=== PATIENT | male | born 1970 | race Hispanic/Latino ===

== ENCOUNTER 2017-12-02 22:00 | Emergency (ER) | payer SELFPAY ==
[2017-12-02 22:00] VITALS: BMI 26.6
[2017-12-02 22:06] VITALS: BP 112/71; PULSE 82; RESP 16; TEMP 97.7; O2SAT 96
--- NOTE | 2017-12-02 22:23 | ED PDOC ---
HPI: Psych/Substance Abuse Time Seen by Provider: 12/02/17 22:14 Chief Complaint (Nursing): Alcohol Ingestion Chief Complaint (Provider): "body lice" Additional Complaint(s): 47 yo male, well known to ER, brought in by EMS with steady gait for evaluation of ETOH. PT states he is here for body lice. Denies rash. No other complaints. Pt admits to drinking alcohol. Past Medical History Reviewed: Historical Data, Nursing Documentation, Vital Signs Vital Signs: Last Vital Signs Temp 97.7 F 12/02/17 22:02 Pulse 82 12/02/17 22:02 Resp 16 12/02/17 22:02 BP 112/71 12/02/17 22:02 Pulse Ox 96 12/02/17 22:02 - Medical History PMH: Asthma, Bronchitis, COPD, HTN, Pneumonia, Seizures Denies: HIV, Chronic Kidney Disease - Surgical History Surgical History: Hernia Repair (ventral) - Family History Family History: States: Unknown Family Hx - Immunization History Hx Tetanus Toxoid Vaccination: No Hx Influenza Vaccination: No Hx Pneumococcal Vaccination: No - Home Medications Home Medications: Ambulatory Orders Medication Instructions Recorded Albuterol 0.083% [Albuterol 0.083% 2.5 mg INH RQ6 PRN #0 neb 10/08/16 Inhal Ghada (2.5 mg/3 ml) UD] Tiotropium [place] Inhaler 1 inhaler INH DAILY #1 inhaler 10/08/16 [Spiriva Inhalation Handihaler Device] Albuterol HFA [Ventolin HFA 90 2 puff IH Q4 PRN #1 inhaler 02/27/17 mcg/actuation (8 g)] Albuterol HFA [Ventolin HFA 90 1 puff IH BID PRN #1 unit 03/25/17 mcg/actuation (8 g)] Doxycycline Hyclate 100 mg PO BID #14 cap 07/14/17 Doxycycline Monohydrate 100 mg PO BID #14 capsule 07/14/17 Mupirocin 2% Cream [Bactroban 1 applic TOP DAILY #1 tube 07/14/17 Cream] Albuterol HFA [Ventolin HFA 90 2 puff IH Q6 #200 puff 07/25/17 mcg/actuation (8 g)] predniSONE [predniSONE Tab] 20 mg PO BID #8 tab 07/25/17 Fluticasone/Salmeterol 250/50 1 puff IH Q12 #1 inh 08/22/17 [Advair Diskus] predniSONE [predniSONE Tab] 60 mg PO QAM #12 tab 08/22/17 Fluticasone/Salmeterol 100/50 1 puff IH BID #2 dsk 09/03/17 [Advair Diskus 100/50] Albuterol HFA [Ventolin HFA 90 2 puff IH Q6 #200 puff 09/04/17 mcg/actuation (8 g)] Tiotropium [Spiriva] 18 mcg IH DAILY #1 cap 09/04/17 predniSONE [predniSONE Tab] 20 mg PO BID #8 tab 09/04/17 Azithromycin [Zithromax] 250 mg PO DAILY #6 tab 09/05/17 Fluticasone/Salmeterol 250/50 1 puff IH Q12 #28 puff 09/07/17 [Advair Diskus] Albuterol HFA [Ventolin HFA 90 1 - 2 puff IH Q6 PRN #1 inhaler 09/14/17 mcg/actuation (8 g)] predniSONE [predniSONE Tab] 60 mg PO QAM #12 tab 09/14/17 Azithromycin [Zithromax] 250 mg PO DAILY #6 tab 10/05/17 predniSONE [predniSONE Tab] 20 mg PO BID #8 tab 10/05/17 Tiotropium [Spiriva] 18 mcg IH DAILY #1 dev 10/06/17 Budesonide/Formoterol Fumarate 2 puff IH BID #1 aer 10/08/17 [Symbicort] Permethrin 5% [Permethrin] 60 gm TP ONCE PRN #1 tube 10/20/17 - Allergies Allergies/Adverse Reactions: Allergies Allergy/AdvReac Type Severity Reaction Status Date / Time No Known Allergies Allergy Verified 11/21/17 00:12 Review of Systems ROS Statement: Except As Marked, All Systems Reviewed And Found Negative Skin: Positive for: Other Physical Exam - Reviewed Nursing Documentation Reviewed: Yes Vital Signs Reviewed: Yes - Physical Exam Appears: Positive for: Well, Non-toxic, No Acute Distress Head Exam: Positive for: ATRAUMATIC, NORMAL INSPECTION, NORMOCEPHALIC Skin: Positive for: Normal Color, Warm. Negative for: Rash Eye Exam: Positive for: Normal appearance ENT: Positive for: Normal ENT Inspection Neck: Positive for: Normal, Painless ROM Cardiovascular/Chest: Positive for: Regular Rate, Rhythm Respiratory: Positive for: Normal Breath Sounds. Negative for: Accessory Muscle Use, Respiratory Distress Back: Positive for: Normal Inspection Extremity: Positive for: Normal ROM Neurologic/Psych: Positive for: Alert, Oriented - ECG O2 Sat by Pulse Oximetry: 96 Medical Decision Making Medical Decision Making: Pt does not wait in ER for discharge papers. Disposition - Clinical Impression Clinical Impression: Alcohol abuse - Disposition Disposition: Routine/Home Disposition Time: 22:13 Condition: STABLE
== END 2017-12-02 22:25 | disposition home or self-care (01) ==
LOC: H.ER 22:00
DX: F10.10 Alcohol abuse, uncomplicated (principal); I10 Essential (primary) hypertension; J44.9 Chronic obstructive pulmonary disease, unspecified

== ENCOUNTER 2017-12-07 22:58 | Emergency (ER) | payer SELFPAY ==
[2017-12-07 22:58] VITALS: BMI 26.6
[2017-12-07 23:02] VITALS: BP 122/84; PULSE 95; RESP 16; TEMP 98; O2SAT 95
--- NOTE | 2017-12-08 00:12 | ED PDOC ---
HPI: Psych/Substance Abuse Time Seen by Provider: 12/07/17 23:48 Chief Complaint (Nursing): Alcohol Ingestion Chief Complaint (Provider): Alcohol Ingestion History Per: Patient History/Exam Limitations: no limitations Onset/Duration Of Symptoms: Hrs Additional Complaint(s): Patient is a 47 year male who presents via BLS for evaluation of alcohol ingestion. Patient was found sleeping on the street and cannot quantify how many beverages he ingested. Patient is well known to ED for his history of alcoholism. Patient has no physical complaints at this time. PMD: none Past Medical History Reviewed: Historical Data, Nursing Documentation, Vital Signs Vital Signs: Last Vital Signs Temp 98 F 12/07/17 22:59 Pulse 95 H 12/07/17 22:59 Resp 16 12/07/17 22:59 BP 122/84 12/07/17 22:59 Pulse Ox 95 12/07/17 22:59 - Medical History PMH: Asthma, Bronchitis, COPD, HTN, Pneumonia, Seizures Denies: HIV, Chronic Kidney Disease - Surgical History Surgical History: Hernia Repair (ventral) - Family History Family History: States: Unknown Family Hx - Living Arrangements Living Arrangements: Other (homeless) - Social History Current smoker - smoking cessation education provided: Yes (whenever he can find cigarettes) Alcohol: None Drugs: Denies - Immunization History Hx Tetanus Toxoid Vaccination: No Hx Influenza Vaccination: No Hx Pneumococcal Vaccination: No - Home Medications Home Medications: Ambulatory Orders Medication Instructions Recorded Albuterol 0.083% [Albuterol 0.083% 2.5 mg INH RQ6 PRN #0 neb 10/08/16 Inhal Ghada (2.5 mg/3 ml) UD] Tiotropium [place] Inhaler 1 inhaler INH DAILY #1 inhaler 10/08/16 [Spiriva Inhalation Handihaler Device] Albuterol HFA [Ventolin HFA 90 2 puff IH Q4 PRN #1 inhaler 02/27/17 mcg/actuation (8 g)] Albuterol HFA [Ventolin HFA 90 1 puff IH BID PRN #1 unit 03/25/17 mcg/actuation (8 g)] Doxycycline Hyclate 100 mg PO BID #14 cap 07/14/17 Doxycycline Monohydrate 100 mg PO BID #14 capsule 07/14/17 Mupirocin 2% Cream [Bactroban 1 applic TOP DAILY #1 tube 07/14/17 Cream] Albuterol HFA [Ventolin HFA 90 2 puff IH Q6 #200 puff 07/25/17 mcg/actuation (8 g)] predniSONE [predniSONE Tab] 20 mg PO BID #8 tab 07/25/17 Fluticasone/Salmeterol 250/50 1 puff IH Q12 #1 inh 08/22/17 [Advair Diskus] predniSONE [predniSONE Tab] 60 mg PO QAM #12 tab 08/22/17 Fluticasone/Salmeterol 100/50 1 puff IH BID #2 dsk 09/03/17 [Advair Diskus 100/50] Albuterol HFA [Ventolin HFA 90 2 puff IH Q6 #200 puff 09/04/17 mcg/actuation (8 g)] Tiotropium [Spiriva] 18 mcg IH DAILY #1 cap 09/04/17 predniSONE [predniSONE Tab] 20 mg PO BID #8 tab 09/04/17 Azithromycin [Zithromax] 250 mg PO DAILY #6 tab 09/05/17 Fluticasone/Salmeterol 250/50 1 puff IH Q12 #28 puff 09/07/17 [Advair Diskus] Albuterol HFA [Ventolin HFA 90 1 - 2 puff IH Q6 PRN #1 inhaler 09/14/17 mcg/actuation (8 g)] predniSONE [predniSONE Tab] 60 mg PO QAM #12 tab 09/14/17 Azithromycin [Zithromax] 250 mg PO DAILY #6 tab 10/05/17 predniSONE [predniSONE Tab] 20 mg PO BID #8 tab 10/05/17 Tiotropium [Spiriva] 18 mcg IH DAILY #1 dev 10/06/17 Budesonide/Formoterol Fumarate 2 puff IH BID #1 aer 10/08/17 [Symbicort] Permethrin 5% [Permethrin] 60 gm TP ONCE PRN #1 tube 10/20/17 - Allergies Allergies/Adverse Reactions: Allergies Allergy/AdvReac Type Severity Reaction Status Date / Time No Known Allergies Allergy Verified 11/21/17 00:12 Review of Systems ROS Statement: Except As Marked, All Systems Reviewed And Found Negative Constitutional: Negative for: Fever, Weakness Cardiovascular: Negative for: Chest Pain Respiratory: Negative for: Cough, Shortness of Breath Gastrointestinal: Negative for: Nausea, Vomiting, Abdominal Pain, Diarrhea Neurological: Negative for: Headache Physical Exam - Reviewed Nursing Documentation Reviewed: Yes Vital Signs Reviewed: Yes - Physical Exam Appears: Positive for: Well, Non-toxic, No Acute Distress Head Exam: Positive for: ATRAUMATIC, NORMOCEPHALIC Skin: Positive for: Normal Color, Warm, Dry Eye Exam: Positive for: EOMI, PERRL Neck: Positive for: Painless ROM, Supple Cardiovascular/Chest: Positive for: Regular Rate, Rhythm Respiratory: Positive for: Normal Breath Sounds. Negative for: Decreased Breath Sounds, Accessory Muscle Use, Respiratory Distress Gastrointestinal/Abdominal: Positive for: Bowel Sounds (x4), Soft. Negative for : Tenderness, Mass, Distended, Guarding, Rebound Back: Negative for: L CVA Tenderness, R CVA Tenderness, Vertebral Tenderness Extremity: Negative for: Deformity Neurologic/Psych: Positive for: Alert, Oriented (x3), Gait (steady) - ECG O2 Sat by Pulse Oximetry: 95 (RA) Pulse Ox Interpretation: Normal Medical Decision Making Medical Decision Making: Clinical Impression: Alcohol Ingestion Given patient physical and history, patient alert and oriented to person, place , time/date in ED. Walking with a steady gait. Patient requires no further intervention in the ED and is appropriate for discharge. Plan: Discharge Advised to follow up with primary care physician/clinic in 1-2 days without fail. Return to the emergency room at any time for any new or worsening symptoms. Patient states he fully agrees with and understands discharge instructions. States that he agrees with the plan and disposition. Verbalized and repeated discharge instructions and plan. I have given the patient opportunity to ask any additional questions. Patient ambulated from ED with steady gait and no further incident. Disposition - Clinical Impression Clinical Impression: Alcohol abuse, Alcohol dependence, Alcohol ingestion, Alcohol intoxication - Patient ED Disposition Is Patient to be Admitted: No Counseled Patient/Family Regarding: Diagnosis, Need For Followup - Disposition [facility] [place] Disposition: Routine/Home Disposition Time: 00:00 Condition: FAIR Instructions: Alcohol Use - When Is Drinking a Problem?, Alcohol Abuse and Alcoholism (DC), Effects of Alcohol on Your Health Forms: [employer] (Sao Tomean) Print Language: YORUBA - POA Present On Arrival: None
== END 2017-12-08 00:32 | disposition home or self-care (01) ==
LOC: H.ER 22:58
DX: F10.229 Alcohol dependence with intoxication, unspecified (principal); I10 Essential (primary) hypertension; J44.9 Chronic obstructive pulmonary disease, unspecified

== ENCOUNTER 2017-12-08 17:18 | Emergency (ER) | payer OTHER ==
[2017-12-08 17:18] VITALS: BMI 26.6
[2017-12-08 17:25] VITALS: BP 146/99; PULSE 101; RESP 16; TEMP 97.6; O2SAT 99
--- NOTE | 2017-12-08 20:19 | ED PDOC ---
HPI: Psych/Substance Abuse Time Seen by Provider: 12/08/17 17:37 Chief Complaint (Nursing): Alcohol Ingestion Chief Complaint (Provider): Alcohol intoxication History Per: EMS History/Exam Limitations: intoxication Additional Complaint(s): 47yo male, brought to ER by EMS after patient was found publicly intoxicated. Patient admits to drinking alcohol today. He is well known to provider and facility for multiple visits with similar symptoms. He has no medical complaints. Past Medical History Reviewed: Historical Data, Nursing Documentation, Vital Signs Vital Signs: Last Vital Signs Temp 97.6 F 12/08/17 17:24 Pulse 101 H 12/08/17 17:24 Resp 16 12/08/17 17:24 BP 146/99 H 12/08/17 17:24 Pulse Ox 99 12/08/17 17:24 - Medical History PMH: Asthma, Bronchitis, COPD, HTN, Pneumonia, Seizures Denies: HIV, Chronic Kidney Disease - Surgical History Surgical History: Hernia Repair (ventral) - Family History Family History: States: Unknown Family Hx - Immunization History Hx Tetanus Toxoid Vaccination: No Hx Influenza Vaccination: No Hx Pneumococcal Vaccination: No - Home Medications Home Medications: Ambulatory Orders Medication Instructions Recorded Albuterol 0.083% [Albuterol 0.083% 2.5 mg INH RQ6 PRN #0 neb 10/08/16 Inhal Ghada (2.5 mg/3 ml) UD] Tiotropium [place] Inhaler 1 inhaler INH DAILY #1 inhaler 10/08/16 [Spiriva Inhalation Handihaler Device] Albuterol HFA [Ventolin HFA 90 2 puff IH Q4 PRN #1 inhaler 02/27/17 mcg/actuation (8 g)] Albuterol HFA [Ventolin HFA 90 1 puff IH BID PRN #1 unit 03/25/17 mcg/actuation (8 g)] Doxycycline Hyclate 100 mg PO BID #14 cap 07/14/17 Doxycycline Monohydrate 100 mg PO BID #14 capsule 07/14/17 Mupirocin 2% Cream [Bactroban 1 applic TOP DAILY #1 tube 07/14/17 Cream] Albuterol HFA [Ventolin HFA 90 2 puff IH Q6 #200 puff 07/25/17 mcg/actuation (8 g)] predniSONE [predniSONE Tab] 20 mg PO BID #8 tab 07/25/17 Fluticasone/Salmeterol 250/50 1 puff IH Q12 #1 inh 08/22/17 [Advair Diskus] predniSONE [predniSONE Tab] 60 mg PO QAM #12 tab 08/22/17 Fluticasone/Salmeterol 100/50 1 puff IH BID #2 dsk 09/03/17 [Advair Diskus 100/50] Albuterol HFA [Ventolin HFA 90 2 puff IH Q6 #200 puff 09/04/17 mcg/actuation (8 g)] Tiotropium [Spiriva] 18 mcg IH DAILY #1 cap 09/04/17 predniSONE [predniSONE Tab] 20 mg PO BID #8 tab 09/04/17 Azithromycin [Zithromax] 250 mg PO DAILY #6 tab 09/05/17 Fluticasone/Salmeterol 250/50 1 puff IH Q12 #28 puff 09/07/17 [Advair Diskus] Albuterol HFA [Ventolin HFA 90 1 - 2 puff IH Q6 PRN #1 inhaler 09/14/17 mcg/actuation (8 g)] predniSONE [predniSONE Tab] 60 mg PO QAM #12 tab 09/14/17 Azithromycin [Zithromax] 250 mg PO DAILY #6 tab 10/05/17 predniSONE [predniSONE Tab] 20 mg PO BID #8 tab 10/05/17 Tiotropium [Spiriva] 18 mcg IH DAILY #1 dev 10/06/17 Budesonide/Formoterol Fumarate 2 puff IH BID #1 aer 10/08/17 [Symbicort] Permethrin 5% [Permethrin] 60 gm TP ONCE PRN #1 tube 10/20/17 - Allergies Allergies/Adverse Reactions: Allergies Allergy/AdvReac Type Severity Reaction Status Date / Time No Known Allergies Allergy Verified 12/08/17 17:21 Review of Systems ROS Statement: Except As Marked, All Systems Reviewed And Found Negative Constitutional: Negative for: Fever, Chills Psych: Positive for: Other (alcohol intoxication) Physical Exam - Reviewed Nursing Documentation Reviewed: Yes Vital Signs Reviewed: Yes - Physical Exam Comments: GENERAL APPEARANCE: Patient is awake, alert, oriented x 3, in no acute distress. SKIN: Warm, dry; (-) cyanosis. HEAD: (-) scalp swelling, (-) scalp tenderness. EYES: (-) conjunctival pallor, (-) scleral icterus, (-) nystagmus. ENMT: Mucous membranes moist. Airway patent: (-) stridor. NECK: (-) tenderness, (-) stiffness, (-) lymphadenopathy. CHEST AND RESPIRATORY: (-) rales, (-) rhonchi, (-) wheezes; breath sounds equal. ABDOMEN: Soft, (-) distention, (-) tenderness, (-) guarding. NEURO AND PSYCH: Mental status as above. Affect: Normal. Memory: Intact. 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 --On re-evaluation, patient is AAOx3 in no acute distress. Speaking in full sentences, no tremors, ambulating with a steady gait. Patient with no complaints. Patient cleared for discharge. Scribe Attestation: Documented by Park Snow acting as a scribe for Amelia Figueroa PA-C. Provider Attestation: All medical record entries made by the Scribe were at my direction and personally dictated by me. I have reviewed the chart and agree that the record accurately reflects my personal performance of the history, physical exam, medical decision making, and the department course for this patient. I have also personally directed, reviewed, and agree with the discharge instructions and disposition. Disposition - Clinical Impression Clinical Impression: Alcoholism - Patient ED Disposition Is Patient to be Admitted: No Counseled Patient/Family Regarding: Diagnosis, Need For Followup - Disposition Referrals: [facility] [Outside] Disposition: Routine/Home Disposition Time: 23:00 Condition: STABLE Instructions: Alcohol Abuse and Alcoholism (DC) Forms: [employer] (Hebrew) - PA / DRAPERY HANGER / Resident Statement MD/DO has reviewed & agrees with the documentation as recorded.
== END 2017-12-08 23:04 | disposition home or self-care (01) ==
LOC: H.ER 17:18
DX: F10.129 Alcohol abuse with intoxication, unspecified (principal); F10.229 Alcohol dependence with intoxication, unspecified; I10 Essential (primary) hypertension; J44.9 Chronic obstructive pulmonary disease, unspecified

== ENCOUNTER 2017-12-11 00:23 | Emergency (ER) | payer MEDICAID ==
[2017-12-11 00:23] VITALS: BMI 26.6
[2017-12-11 00:32] VITALS: PULSE 80; RESP 18; TEMP 98; O2SAT 95
--- NOTE | 2017-12-11 01:00 | ED PDOC ---
HPI: Psych/Substance Abuse Time Seen by Provider: 12/11/17 00:31 Chief Complaint (Nursing): Alcohol Ingestion Chief Complaint (Provider): Alcohol Ingestion ED Caveat: Intoxicated History Per: Patient, EMS History/Exam Limitations: intoxication Current Symptoms Are (Timing): Still Present Additional Complaint(s): 47 year old male brought in by EMS due to public intoxication. [place] Patient is well known to this provider over multiple ED visits. Offers no complaints at this time. PMD: Provider TBD Past Medical History Reviewed: Historical Data, Nursing Documentation, Vital Signs Vital Signs: Last Vital Signs Temp 98.0 F 12/11/17 00:29 Pulse 80 12/11/17 00:29 Resp 18 12/11/17 00:29 BP 111/72 12/11/17 00:29 Pulse Ox 95 12/11/17 00:29 - Medical History PMH: Asthma, Bronchitis, COPD, HTN, Pneumonia, Seizures Denies: HIV, Chronic Kidney Disease - Surgical History Surgical History: Hernia Repair (ventral) - Family History Family History: States: Unknown Family Hx - Immunization History Hx Tetanus Toxoid Vaccination: No Hx Influenza Vaccination: No Hx Pneumococcal Vaccination: No - Home Medications Home Medications: Ambulatory Orders Medication Instructions Recorded Albuterol 0.083% [Albuterol 0.083% 2.5 mg INH RQ6 PRN #0 neb 10/08/16 Inhal Ghada (2.5 mg/3 ml) UD] Tiotropium [place] Inhaler 1 inhaler INH DAILY #1 inhaler 10/08/16 [Spiriva Inhalation Handihaler Device] Albuterol HFA [Ventolin HFA 90 2 puff IH Q4 PRN #1 inhaler 02/27/17 mcg/actuation (8 g)] Albuterol HFA [Ventolin HFA 90 1 puff IH BID PRN #1 unit 03/25/17 mcg/actuation (8 g)] Doxycycline Hyclate 100 mg PO BID #14 cap 07/14/17 Doxycycline Monohydrate 100 mg PO BID #14 capsule 07/14/17 Mupirocin 2% Cream [Bactroban 1 applic TOP DAILY #1 tube 07/14/17 Cream] Albuterol HFA [Ventolin HFA 90 2 puff IH Q6 #200 puff 10/30/17 mcg/actuation (8 g)] predniSONE [predniSONE Tab] 20 mg PO BID #8 tab 07/25/17 Fluticasone/Salmeterol 250/50 1 puff IH Q12 #1 inh 08/22/17 [Advair Diskus] predniSONE [predniSONE Tab] 60 mg PO QAM #12 tab 08/22/17 Fluticasone/Salmeterol 100/50 1 puff IH BID #2 dsk 09/03/17 [Advair Diskus 100/50] Albuterol HFA [Ventolin HFA 90 2 puff IH Q6 #200 puff 09/04/17 mcg/actuation (8 g)] Tiotropium [Spiriva] 18 mcg IH DAILY #1 cap 09/04/17 predniSONE [predniSONE Tab] 20 mg PO BID #8 tab 09/04/17 Azithromycin [Zithromax] 250 mg PO DAILY #6 tab 09/05/17 Fluticasone/Salmeterol 250/50 1 puff IH Q12 #28 puff 09/07/17 [Advair Diskus] Albuterol HFA [Ventolin HFA 90 1 - 2 puff IH Q6 PRN #1 inhaler 09/14/17 mcg/actuation (8 g)] predniSONE [predniSONE Tab] 60 mg PO QAM #12 tab 09/14/17 Azithromycin [Zithromax] 250 mg PO DAILY #6 tab 10/05/17 predniSONE [predniSONE Tab] 20 mg PO BID #8 tab 10/05/17 Tiotropium [Spiriva] 18 mcg IH DAILY #1 dev 10/06/17 Budesonide/Formoterol Fumarate 2 puff IH BID #1 aer 10/08/17 [Symbicort] Permethrin 5% [Permethrin] 60 gm TP ONCE PRN #1 tube 10/20/17 - Allergies Allergies/Adverse Reactions: Allergies Allergy/AdvReac Type Severity Reaction Status Date / Time No Known Allergies Allergy Verified 12/08/17 17:21 Review of Systems ROS Statement: Except As Marked, All Systems Reviewed And Found Negative Physical Exam - Reviewed Nursing Documentation Reviewed: Yes Vital Signs Reviewed: Yes - ECG O2 Sat by Pulse Oximetry: 95 (RA) Pulse Ox Interpretation: Normal Medical Decision Making Medical Decision Making: Time: 00:39 Initial Impression: 47 y/o old male with alcohol intoxication Initial Plan: --Alcohol serum --Accucheck --Reevaluation Time: 07:00 Patient signed out to Dr. Coreas pending sobriety. Scribe Attestation: Documented by Aiden Pino, acting as a scribe for Tomasz Hill MD. Provider Scribe Attestation: All medical record entries made by the Scribe were at my direction and personally dictated by me. I have reviewed the chart and agree that the record accurately reflects my personal performance of the history, physical exam, medical decision making, and the department course for this patient. I have also personally directed, reviewed, and agree with the discharge instructions and disposition. Disposition - Clinical Impression Clinical Impression: Alcohol abuse with intoxication - Patient ED Disposition Is Patient to be Admitted: Transfer of Care - Disposition Disposition: Transfer of Care Disposition Time: 07:00 Condition: STABLE Instructions: Alcohol Abuse and Alcoholism (DC) Forms: [employer] (Bangladeshi) Patient Signed Over To: Angel Coreas Handoff Comments: pending sobriety
[2017-12-11 06:54] VITALS: BP 103/65
--- NOTE | 2017-12-11 07:27 | ED PDOC ---
- ECG O2 Sat by Pulse Oximetry: 95 (RA) Pulse Ox Interpretation: Normal Medical Decision Making Medical Decision Making: Time: 7:00 Patient endorsed to me by Dr. Tomasz Hill at this time, pending clinical sobriety. 929 Informed by nurse that patient eloped from the ED Scribe Attestation: Documented by Elizabeth Carter, acting as a scribe for Angel Coreas MD Provider Scribe Attestation: All medical record entries made by the Scribe were at my direction and personally dictated by me. I have reviewed the chart and agree that the record accurately reflects my personal performance of the history, physical exam, medical decision making, and the department course for this patient. I have also personally directed, reviewed, and agree with the discharge instructions and disposition. Disposition - Clinical Impression Clinical Impression: Alcohol abuse with intoxication - POA Present On Arrival: None - Disposition Referrals: [facility] [Outside] Disposition: Eloped Disposition Time: 09:30 Condition: STABLE Instructions: Alcohol Abuse and Alcoholism (DC)
== END 2017-12-11 07:25 | disposition left against medical advice (07) ==
LOC: H.ER 00:23
DX: F10.129 Alcohol abuse with intoxication, unspecified (principal); I10 Essential (primary) hypertension; J44.9 Chronic obstructive pulmonary disease, unspecified; Y90.8 Blood alcohol level of 240 mg/100 ml or more

== ENCOUNTER 2017-12-13 22:47 | Emergency (ER) | payer MEDICAID, OTHER ==
[2017-12-13 22:47] VITALS: BMI 26.6
[2017-12-13 22:55] VITALS: BP 118/82; PULSE 85; RESP 16; TEMP 97.2; O2SAT 97
--- NOTE | 2017-12-14 02:00 | ED PDOC ---
HPI: Psych/Substance Abuse Time Seen by Provider: 12/13/17 22:57 Chief Complaint (Nursing): Alcohol Ingestion Chief Complaint (Provider): Alcohol Ingestion ED Caveat: Intoxicated History Per: Patient History/Exam Limitations: intoxication Current Symptoms Are (Timing): Still Present Modifying Factor(s): Alcohol Additional Complaint(s): 47 year old male brought in by EMS presents to ED with complaints of alcohol intoxication and has a past medical history of HTN and COPD. EMS states patient was found publicly intoxicated lying on a street. Patient is not a reliable historian and admits to drinking. PCP: None Past Medical History Reviewed: Historical Data, Nursing Documentation, Vital Signs Vital Signs: Last Vital Signs Temp 97.2 F L 12/13/17 22:48 Pulse 85 12/13/17 22:48 Resp 16 12/13/17 22:48 BP 118/82 12/13/17 22:48 Pulse Ox 97 12/13/17 22:48 - Medical History PMH: Asthma, Bronchitis, COPD, HTN, Pneumonia, Seizures Denies: HIV, Chronic Kidney Disease - Surgical History Surgical History: Hernia Repair (ventral) - Family History Family History: States: Unknown Family Hx - Immunization History Hx Tetanus Toxoid Vaccination: No Hx Influenza Vaccination: No Hx Pneumococcal Vaccination: No - Home Medications Home Medications: Ambulatory Orders Medication Instructions Recorded Albuterol 0.083% [Albuterol 0.083% 2.5 mg INH RQ6 PRN #0 neb 10/08/16 Inhal Ghada (2.5 mg/3 ml) UD] Tiotropium [place] Inhaler 1 inhaler INH DAILY #1 inhaler 10/08/16 [Spiriva Inhalation Handihaler Device] Albuterol HFA [Ventolin HFA 90 2 puff IH Q4 PRN #1 inhaler 02/27/17 mcg/actuation (8 g)] Albuterol HFA [Ventolin HFA 90 1 puff IH BID PRN #1 unit 03/25/17 mcg/actuation (8 g)] Doxycycline Hyclate 100 mg PO BID #14 cap 07/14/17 Doxycycline Monohydrate 100 mg PO BID #14 capsule 07/14/17 Mupirocin 2% Cream [Bactroban 1 applic TOP DAILY #1 tube 07/14/17 Cream] Albuterol HFA [Ventolin HFA 90 2 puff IH Q6 #200 puff 07/25/17 mcg/actuation (8 g)] predniSONE [predniSONE Tab] 20 mg PO BID #8 tab 07/25/17 Fluticasone/Salmeterol 250/50 1 puff IH Q12 #1 inh 08/22/17 [Advair Diskus] predniSONE [predniSONE Tab] 60 mg PO QAM #12 tab 08/22/17 Fluticasone/Salmeterol 100/50 1 puff IH BID #2 dsk 09/03/17 [Advair Diskus 100/50] Albuterol HFA [Ventolin HFA 90 2 puff IH Q6 #200 puff 09/04/17 mcg/actuation (8 g)] Tiotropium [Spiriva] 18 mcg IH DAILY #1 cap 09/04/17 predniSONE [predniSONE Tab] 20 mg PO BID #8 tab 09/04/17 Azithromycin [Zithromax] 250 mg PO DAILY #6 tab 09/05/17 Fluticasone/Salmeterol 250/50 1 puff IH Q12 #28 puff 09/07/17 [Advair Diskus] Albuterol HFA [Ventolin HFA 90 1 - 2 puff IH Q6 PRN #1 inhaler 09/14/17 mcg/actuation (8 g)] predniSONE [predniSONE Tab] 60 mg PO QAM #12 tab 09/14/17 Azithromycin [Zithromax] 250 mg PO DAILY #6 tab 10/05/17 predniSONE [predniSONE Tab] 20 mg PO BID #8 tab 10/05/17 Tiotropium [Spiriva] 18 mcg IH DAILY #1 dev 10/06/17 Budesonide/Formoterol Fumarate 2 puff IH BID #1 aer 10/08/17 [Symbicort] Permethrin 5% [Permethrin] 60 gm TP ONCE PRN #1 tube 10/20/17 - Allergies Allergies/Adverse Reactions: Allergies Allergy/AdvReac Type Severity Reaction Status Date / Time No Known Allergies Allergy Verified 12/08/17 17:21 Review of Systems Review Of Systems: ROS cannot be obtained secondary to pt's inabilty to answer questions. (Due to patient's intoxicated state) Physical Exam - Reviewed Nursing Documentation Reviewed: Yes Vital Signs Reviewed: Yes - Physical Exam Appears: Positive for: Non-toxic, No Acute Distress (alcohol on breath) Skin: Positive for: Normal Color, Warm, Dry Cardiovascular/Chest: Positive for: Regular Rate, Rhythm Respiratory: Negative for: Respiratory Distress Gastrointestinal/Abdominal: Positive for: Soft. Negative for: Tenderness Extremity: Positive for: Normal ROM. Negative for: Deformity Neurologic/Psych: Positive for: Gait (unsteady). Negative for: Alert ( somnolent but arousable), Motor/Sensory Deficits - ECG O2 Sat by Pulse Oximetry: 97 (RA) Pulse Ox Interpretation: Normal Medical Decision Making Medical Decision Makin Initial impression: alcohol intoxication Initial plan: * EtOH serum * Accucheck 0600 Upon re-evaluation patient is awake, alert, and oriented x3. Patient walks with a steady gait and is stable for discharge home. Scribe Attestation: Documented by Shara Collazo acting as a scribe Tomasz Hill MD. Scribe Attestation: All medical record entries made by the Scribe were at my direction and personally dictated by me. I have reviewed the chart and agree that the record accurately reflects my personal performance of the history, physical exam, medical decision making, and the department course for this patient. I have also personally directed, reviewed, and agree with the discharge instructions and disposition. Disposition - Clinical Impression Clinical Impression: Alcohol intoxication - Disposition Disposition: Routine/Home Disposition Time: 06:00 Condition: STABLE Instructions: Alcohol Abuse and Alcoholism (DC) Forms: [employer] (Beninese)
== END 2017-12-14 06:14 | disposition home or self-care (01) ==
LOC: H.ER 22:47
DX: F10.129 Alcohol abuse with intoxication, unspecified (principal)

== ENCOUNTER 2017-12-14 17:20 | Emergency (ER) | payer MEDICAID, OTHER ==
[2017-12-14 17:20] VITALS: BMI 26.6
--- NOTE | 2017-12-14 18:36 | ED PDOC ---
HPI: Psych/Substance Abuse Time Seen by Provider: 12/14/17 17:23 Chief Complaint (Nursing): Alcohol Ingestion Chief Complaint (Provider): Alcohol ingestion History Per: Patient History/Exam Limitations: no limitations Onset/Duration Of Symptoms: Hrs (today) Current Symptoms Are (Timing): Still Present Suicide/Self Injury Attempted (Context): None Modifying Factor(s): Alcohol Involuntary Hold By: None Additional Complaint(s): Micky Chappell is a 47 year old male, with a past medical history of COPD, asthma, and seizures, who was brought to the emergency department via EMS for public intoxication. Per EMS, patient was found publicly intoxicated and admits to drinking 1/5 of vodka. Patient is well known to the PA. Patient denies any other medical complaints. PMD: None provided. Past Medical History Reviewed: Historical Data, Nursing Documentation, Vital Signs Vital Signs: Last Vital Signs Temp 97.5 F L 12/14/17 17:21 Pulse 108 H 12/14/17 17:21 Resp 16 12/14/17 17:21 BP 129/86 12/14/17 17:21 Pulse Ox 98 12/14/17 17:21 - Medical History PMH: Asthma, Bronchitis, COPD, HTN, Pneumonia, Seizures Denies: HIV, Chronic Kidney Disease - Surgical History Surgical History: Hernia Repair (ventral) - Family History Family History: States: Unknown Family Hx - Social History Current smoker - smoking cessation education provided: Yes (Current some days smoker) Alcohol: > 2 Drinks/Day Drugs: Denies - Immunization History Hx Tetanus Toxoid Vaccination: No Hx Influenza Vaccination: No Hx Pneumococcal Vaccination: No - Home Medications Home Medications: Ambulatory Orders Medication Instructions Recorded Albuterol 0.083% [Albuterol 0.083% 2.5 mg INH RQ6 PRN #0 neb 10/08/16 Inhal Ghada (2.5 mg/3 ml) UD] Tiotropium [place] Inhaler 1 inhaler INH DAILY #1 inhaler 10/08/16 [Spiriva Inhalation Handihaler Device] Albuterol HFA [Ventolin HFA 90 2 puff IH Q4 PRN #1 inhaler 02/27/17 mcg/actuation (8 g)] Albuterol HFA [Ventolin HFA 90 1 puff IH BID PRN #1 unit 03/25/17 mcg/actuation (8 g)] Doxycycline Hyclate 100 mg PO BID #14 cap 07/14/17 Doxycycline Monohydrate 100 mg PO BID #14 capsule 07/14/17 Mupirocin 2% Cream [Bactroban 1 applic TOP DAILY #1 tube 07/14/17 Cream] Albuterol HFA [Ventolin HFA 90 2 puff IH Q6 #200 puff 07/25/17 mcg/actuation (8 g)] predniSONE [predniSONE Tab] 20 mg PO BID #8 tab 07/25/17 Fluticasone/Salmeterol 250/50 1 puff IH Q12 #1 inh 08/22/17 [Advair Diskus] predniSONE [predniSONE Tab] 60 mg PO QAM #12 tab 08/22/17 Fluticasone/Salmeterol 100/50 1 puff IH BID #2 dsk 09/03/17 [Advair Diskus 100/50] Albuterol HFA [Ventolin HFA 90 2 puff IH Q6 #200 puff 09/04/17 mcg/actuation (8 g)] Tiotropium [Spiriva] 18 mcg IH DAILY #1 cap 09/04/17 predniSONE [predniSONE Tab] 20 mg PO BID #8 tab 09/04/17 Azithromycin [Zithromax] 250 mg PO DAILY #6 tab 09/05/17 Fluticasone/Salmeterol 250/50 1 puff IH Q12 #28 puff 09/07/17 [Advair Diskus] Albuterol HFA [Ventolin HFA 90 1 - 2 puff IH Q6 PRN #1 inhaler 09/14/17 mcg/actuation (8 g)] predniSONE [predniSONE Tab] 60 mg PO QAM #12 tab 09/14/17 Azithromycin [Zithromax] 250 mg PO DAILY #6 tab 10/05/17 predniSONE [predniSONE Tab] 20 mg PO BID #8 tab 10/05/17 Tiotropium [Spiriva] 18 mcg IH DAILY #1 dev 10/06/17 Budesonide/Formoterol Fumarate 2 puff IH BID #1 aer 10/08/17 [Symbicort] Permethrin 5% [Permethrin] 60 gm TP ONCE PRN #1 tube 10/20/17 - Allergies Allergies/Adverse Reactions: Allergies Allergy/AdvReac Type Severity Reaction Status Date / Time No Known Allergies Allergy Verified 12/14/17 17:21 Review of Systems ROS Statement: Except As Marked, All Systems Reviewed And Found Negative Constitutional: Positive for: Other (ETOH intoxication) Physical Exam - Reviewed Nursing Documentation Reviewed: Yes Vital Signs Reviewed: Yes - Physical Exam Appears: Positive for: Well, Non-toxic, No Acute Distress Head Exam: Positive for: ATRAUMATIC, NORMAL INSPECTION, NORMOCEPHALIC Skin: Positive for: Normal Color, Warm, Dry Eye Exam: Positive for: Normal appearance Neck: Positive for: Painless ROM, Supple Cardiovascular/Chest: Positive for: Regular Rate, Rhythm. Negative for: Murmur Respiratory: Positive for: Normal Breath Sounds. Negative for: Respiratory Distress Gastrointestinal/Abdominal: Positive for: Normal Exam, Soft. Negative for: Tenderness Extremity: Positive for: Normal ROM. Negative for: Deformity, Swelling Neurologic/Psych: Positive for: Alert - ECG O2 Sat by Pulse Oximetry: 98 (RA) Pulse Ox Interpretation: Normal - Progress ED Course And Treament: 2029 On re-evaluation, pt. sleeping comfortably. Easily arousable. States he has lice. Pt. with hx of lice infestation. Elimite ordered. 2329 Pt. showered and elimite was applied. Medical Decision Making Medical Decision Making: Initial Impression: Alcohol intoxication Initial Plan: --Alcohol serum --Glucose, blood, POC --Reevaluation ~ Scribe Attestation: Documented by Emmanuel Villegas, acting as a scribe for Michi Bucio PA-C. Provider Scribe Attestation: All medical record entries made by the Scribe were at my direction and personally dictated by me. I have reviewed the chart and agree that the record accurately reflects my personal performance of the history, physical exam, medical decision making, and the department course for this patient. I have also personally directed, reviewed, and agree with the discharge instructions and disposition. Disposition - Clinical Impression Clinical Impression: Lice, Alcohol abuse - Patient ED Disposition Is Patient to be Admitted: Transfer of Care (Signed out to Earl NAVA pending sobriety) - Disposition Disposition: Routine/Home Disposition Time: 00:00 Condition: STABLE Forms: [facility] (Pashto)
[2017-12-14] MEDS ORDERED: Permethrin 5% CREAM TOP ONE (20:52)
--- NOTE | 2017-12-15 05:04 | ED PDOC ---
- ECG O2 Sat by Pulse Oximetry: 98 (RA) - Progress ED Course And Treament: Case endorsed to technical publications writer from Rupinder NAVA pending sobriety 5:00 Patient awake, alert, oriented x3. Ambulating steady gait. Stable for discharge. Advised permethrin needs to be washed off in 6 hours Disposition - Clinical Impression Clinical Impression: Lice, Alcohol abuse - POA Present On Arrival: None - Disposition Disposition: Routine/Home Disposition Time: 05:03 Condition: STABLE Instructions: Lice, Alcohol Abuse and Alcoholism (DC)
[2017-12-15 05:27] VITALS: BP 159/91; PULSE 94; RESP 19; TEMP 97.1; O2SAT 95
== END 2017-12-15 05:27 | disposition home or self-care (01) ==
LOC: H.ER 17:20
DX: F10.10 Alcohol abuse, uncomplicated (principal); B85.2 Pediculosis, unspecified; F17.200 Nicotine dependence, unspecified, uncomplicated; J44.9 Chronic obstructive pulmonary disease, unspecified; I10 Essential (primary) hypertension; R56.9 Unspecified convulsions

== ENCOUNTER 2017-12-16 03:56 | Emergency (ER) | payer MEDICAID ==
[2017-12-16 03:56] VITALS: BMI 26.6
[2017-12-16 05:24] VITALS: RESP 18; O2SAT 98
--- NOTE | 2017-12-16 07:18 | ED PDOC ---
HPI: General Adult Time Seen by Provider: 12/16/17 05:04 Chief Complaint (Nursing): Abnormal Skin Integrity Chief Complaint (Provider): Lice History Per: Patient History/Exam Limitations: no limitations Have you had recent travel within the past 21 days to any of the following countries: [place], [place], [place] or [place]?: No Current Symptoms Are (Timing): Still Present Additional Complaint(s): 47 year old male presents to ED with complaints of pruritic skin x6 weeks and has a past medical history of EtOH abuse, COPD, asthma, and HTN. Patient notes diffuse itching and has been seen here in the ED multiple times and received prescriptions for lice treatment, however has not filled them. [place] and states this is the reason he cannot get rid of the lice. Patient states he does not want to go to a detention and would rather be on the streets. PCP: None Past Medical History Reviewed: Historical Data, Nursing Documentation, Vital Signs Vital Signs: Last Vital Signs Temp 98.5 F 12/16/17 07:54 Pulse 100 H 12/16/17 07:54 Resp 18 12/16/17 07:54 BP 153/90 H 12/16/17 07:54 Pulse Ox 98 12/16/17 23:31 - Medical History PMH: Asthma, Bronchitis, COPD, HTN, Pneumonia, Seizures Denies: HIV, Chronic Kidney Disease - Surgical History Surgical History: Hernia Repair (ventral) - Family History Family History: States: Unknown Family Hx - Living Arrangements Living Arrangements: Other (Non-domiciled) - Immunization History Hx Tetanus Toxoid Vaccination: No Hx Influenza Vaccination: No Hx Pneumococcal Vaccination: No - Home Medications Home Medications: Ambulatory Orders Medication Instructions Recorded Albuterol 0.083% [Albuterol 0.083% 2.5 mg INH RQ6 PRN #0 neb 10/08/16 Inhal Ghada (2.5 mg/3 ml) UD] Tiotropium [place] Inhaler 1 inhaler INH DAILY #1 inhaler 10/08/16 [Spiriva Inhalation Handihaler Device] Albuterol HFA [Ventolin HFA 90 2 puff IH Q4 PRN #1 inhaler 02/27/17 mcg/actuation (8 g)] Albuterol HFA [Ventolin HFA 90 1 puff IH BID PRN #1 unit 03/25/17 mcg/actuation (8 g)] Doxycycline Hyclate 100 mg PO BID #14 cap 07/14/17 Doxycycline Monohydrate 100 mg PO BID #14 capsule 07/14/17 Mupirocin 2% Cream [Bactroban 1 applic TOP DAILY #1 tube 07/14/17 Cream] Albuterol HFA [Ventolin HFA 90 2 puff IH Q6 #200 puff 07/25/17 mcg/actuation (8 g)] predniSONE [predniSONE Tab] 20 mg PO BID #8 tab 07/25/17 Fluticasone/Salmeterol 250/50 1 puff IH Q12 #1 inh 08/22/17 [Advair Diskus] predniSONE [predniSONE Tab] 60 mg PO QAM #12 tab 08/22/17 Fluticasone/Salmeterol 100/50 1 puff IH BID #2 dsk 09/03/17 [Advair Diskus 100/50] Albuterol HFA [Ventolin HFA 90 2 puff IH Q6 #200 puff 09/04/17 mcg/actuation (8 g)] Tiotropium [Spiriva] 18 mcg IH DAILY #1 cap 09/04/17 predniSONE [predniSONE Tab] 20 mg PO BID #8 tab 09/04/17 Azithromycin [Zithromax] 250 mg PO DAILY #6 tab 09/05/17 Fluticasone/Salmeterol 250/50 1 puff IH Q12 #28 puff 09/07/17 [Advair Diskus] Albuterol HFA [Ventolin HFA 90 1 - 2 puff IH Q6 PRN #1 inhaler 09/14/17 mcg/actuation (8 g)] predniSONE [predniSONE Tab] 60 mg PO QAM #12 tab 09/14/17 Azithromycin [Zithromax] 250 mg PO DAILY #6 tab 10/05/17 predniSONE [predniSONE Tab] 20 mg PO BID #8 tab 10/05/17 Tiotropium [Spiriva] 18 mcg IH DAILY #1 dev 10/06/17 Budesonide/Formoterol Fumarate 2 puff IH BID #1 aer 10/08/17 [Symbicort] Permethrin 5% [Permethrin] 60 gm TP ONCE PRN #1 tube 10/20/17 Permethrin 1% [Permethrin 60 Ml] 60 ml TP ONCE #1 bottle 12/16/17 - Allergies Allergies/Adverse Reactions: Allergies Allergy/AdvReac Type Severity Reaction Status Date / Time No Known Allergies Allergy Verified 12/16/17 05:23 Review of Systems ROS Statement: Except As Marked, All Systems Reviewed And Found Negative Skin: Positive for: Rash (itchy skin diffusely) Physical Exam - Reviewed Nursing Documentation Reviewed: Yes (disheveled) Vital Signs Reviewed: Yes - Physical Exam Appears: Positive for: Non-toxic, No Acute Distress Head Exam: Positive for: ATRAUMATIC, NORMOCEPHALIC Skin: Positive for: Warm, Dry. Negative for: Normal Color (diffuse excoriations ), Rash (No rash or lice visualized) Eye Exam: Positive for: EOMI, PERRL Neck: Positive for: Painless ROM, Supple Cardiovascular/Chest: Positive for: Regular Rate, Rhythm. Negative for: Murmur Respiratory: Positive for: Normal Breath Sounds. Negative for: Decreased Breath Sounds, Accessory Muscle Use, Respiratory Distress Gastrointestinal/Abdominal: Positive for: Soft. Negative for: Tenderness, Mass , Distended, Guarding Neurologic/Psych: Positive for: Alert, Oriented (x3), Mood/Affect (appropriate) , Gait (steady in ED). Negative for: Aphasia, Facial Droop - ECG O2 Sat by Pulse Oximetry: 98 (RA) Pulse Ox Interpretation: Normal Medical Decision Making Medical Decision Makin Initial impression: pruritis, body lice Initial plan: Patient will be discharged with a prescription for lice treatment. Hygiene stressed to patient. Patient declined detention information at this time. Based on history, exam and diagnostic results, plan will be for outpatient follow up. Patient instructed to follow-up with pmd / referral provided / the clinic in 1- 2 days without fail. Advised to take medication as prescribed. Return to the emergency room at any time for any new or worsening symptoms. Patient states he fully agrees with and understands discharge instructions. States that he agrees with the plan and disposition. Verbalized and repeated discharge instructions and plan. I have given the patient opportunity to ask any additional questions. Scribe Attestation: Documented by Shara Collazo acting as a scribe for Justa Barcenas PA-C. MD Scribe Attestation: All medical record entries made by the Scribe were at my direction and personally dictated by me. I have reviewed the chart and agree that the record accurately reflects my personal performance of the history, physical exam, medical decision making, and the department course for this patient. I have also personally directed, reviewed, and agree with the discharge instructions and disposition. Disposition - Clinical Impression Clinical Impression: Body lice, Pruritic condition - Disposition Referrals: [facility] [Outside] Disposition: Routine/Home Disposition Time: 05:56 Condition: FAIR Prescriptions: Permethrin 1% [Permethrin 60 Ml] 60 ml TP ONCE #1 bottle Instructions: Lice, Itchy Skin Forms: [facility] (Yakut) Print Language: BELIZEAN
[2017-12-16 07:54] VITALS: BP 153/90; PULSE 100; TEMP 98.5
== END 2017-12-16 07:56 | disposition home or self-care (01) ==
LOC: H.ER 03:56
DX: L29.9 Pruritus, unspecified (principal); B85.1 Pediculosis due to Pediculus humanus corporis; I10 Essential (primary) hypertension; J44.9 Chronic obstructive pulmonary disease, unspecified

== ENCOUNTER 2018-01-16 13:34 | Emergency (ER) | payer MEDICAID, OTHER ==
[2018-01-16 13:34] VITALS: BMI 26.6
[2018-01-16 14:33] VITALS: RESP 18; TEMP 98
--- NOTE | 2018-01-16 15:38 | ED PDOC ---
HPI: Psych/Substance Abuse Time Seen by Provider: 01/16/18 14:50 Chief Complaint (Nursing): Alcohol Ingestion Chief Complaint (Provider): ALCOHOL INGESTION History Per: Patient (47 Y/O MALE UNDOMICILED FOUND DRINKING ETOH PARK AND BROUGHT TO ED FOR EVALUATION. DENIES ANY COMPLAINTS.) Past Medical History Reviewed: Historical Data, Nursing Documentation, Vital Signs Vital Signs: Last Vital Signs Temp 98 F 01/16/18 14:30 Pulse 82 01/16/18 14:30 Resp 18 01/16/18 14:30 BP 108/68 01/16/18 14:30 Pulse Ox 97 01/16/18 14:30 - Medical History PMH: Asthma, Bronchitis, COPD, HTN, Pneumonia, Seizures Denies: HIV, Chronic Kidney Disease - Surgical History Surgical History: Hernia Repair (ventral) - Family History Family History: States: Unknown Family Hx - Immunization History Hx Tetanus Toxoid Vaccination: No Hx Influenza Vaccination: No Hx Pneumococcal Vaccination: No - Home Medications Home Medications: Ambulatory Orders Medication Instructions Recorded Albuterol 0.083% [Albuterol 0.083% 2.5 mg INH RQ6 PRN #0 neb 10/08/16 Inhal Ghada (2.5 mg/3 ml) UD] Tiotropium [place] Inhaler 1 inhaler INH DAILY #1 inhaler 10/08/16 [Spiriva Inhalation Handihaler Device] Albuterol HFA [Ventolin HFA 90 2 puff IH Q4 PRN #1 inhaler 02/27/17 mcg/actuation (8 g)] Albuterol HFA [Ventolin HFA 90 1 puff IH BID PRN #1 unit 03/25/17 mcg/actuation (8 g)] Doxycycline Hyclate 100 mg PO BID #14 cap 07/14/17 Doxycycline Monohydrate 100 mg PO BID #14 capsule 07/14/17 Mupirocin 2% Cream [Bactroban 1 applic TOP DAILY #1 tube 07/14/17 Cream] Albuterol HFA [Ventolin HFA 90 2 puff IH Q6 #200 puff 07/25/17 mcg/actuation (8 g)] predniSONE [predniSONE Tab] 20 mg PO BID #8 tab 07/25/17 Fluticasone/Salmeterol 250/50 1 puff IH Q12 #1 inh 11/27/17 [Advair Diskus] predniSONE [predniSONE Tab] 60 mg PO QAM #12 tab 08/22/17 Fluticasone/Salmeterol 100/50 1 puff IH BID #2 dsk 09/03/17 [Advair Diskus 100/50] Albuterol HFA [Ventolin HFA 90 2 puff IH Q6 #200 puff 09/04/17 mcg/actuation (8 g)] Tiotropium [Spiriva] 18 mcg IH DAILY #1 cap 09/04/17 predniSONE [predniSONE Tab] 20 mg PO BID #8 tab 09/04/17 Azithromycin [Zithromax] 250 mg PO DAILY #6 tab 09/05/17 Fluticasone/Salmeterol 250/50 1 puff IH Q12 #28 puff 09/07/17 [Advair Diskus] Albuterol HFA [Ventolin HFA 90 1 - 2 puff IH Q6 PRN #1 inhaler 09/14/17 mcg/actuation (8 g)] predniSONE [predniSONE Tab] 60 mg PO QAM #12 tab 09/14/17 Azithromycin [Zithromax] 250 mg PO DAILY #6 tab 10/05/17 predniSONE [predniSONE Tab] 20 mg PO BID #8 tab 10/05/17 Tiotropium [Spiriva] 18 mcg IH DAILY #1 dev 10/06/17 Budesonide/Formoterol Fumarate 2 puff IH BID #1 aer 10/08/17 [Symbicort] Permethrin 5% [Permethrin] 60 gm TP ONCE PRN #1 tube 10/20/17 Permethrin 1% [Permethrin 60 Ml] 60 ml TP ONCE #1 bottle 12/16/17 - Allergies Allergies/Adverse Reactions: Allergies Allergy/AdvReac Type Severity Reaction Status Date / Time No Known Allergies Allergy Verified 12/16/17 05:23 Review of Systems ROS Statement: Except As Marked, All Systems Reviewed And Found Negative Physical Exam - Reviewed Nursing Documentation Reviewed: Yes Vital Signs Reviewed: Yes - Physical Exam Appears: Positive for: Well, Non-toxic, No Acute Distress Head Exam: Positive for: ATRAUMATIC, NORMAL INSPECTION, NORMOCEPHALIC Skin: Positive for: Normal Color, Warm, DRY Eye Exam: Positive for: EOMI, Normal appearance, PERRL ENT: Positive for: Normal ENT Inspection Neck: Positive for: Normal, Painless ROM Cardiovascular/Chest: Positive for: Regular Rate, Rhythm Respiratory: Positive for: CNT, Normal Breath Sounds Gastrointestinal/Abdominal: Positive for: Normal Exam, Soft Back: Positive for: Normal Inspection Extremity: Positive for: Normal ROM Neurologic/Psych: Positive for: Alert, Oriented - ECG O2 Sat by Pulse Oximetry: 97 - Progress ED Course And Treament: PATIENT WAS NOTED TO HAVE POSSIBLE LICE ON BODY AT TRIAGE DECONTAMINATED IN ED. PREMETHRIN LOTION ORDERED Disposition - Clinical Impression Clinical Impression: Alcohol abuse with intoxication, Lice - Patient ED Disposition Is Patient to be Admitted: No - Disposition Disposition: Routine/Home Disposition Time: 21:32 Condition: FAIR Instructions: Lice, Alcohol Abuse and Alcoholism (DC) Forms: [employer] (Albanian)
[2018-01-16] MEDS: Permethrin 1% Kit 59 ML BOTTLE TOP ONE ×2 (19:45→19:49)
[2018-01-16] MEDS ORDERED: Permethrin 5% CREAM TOP ONE (19:48)
[2018-01-16 21:33] VITALS: BP 110/72; PULSE 81
[2018-01-16 23:37] VITALS: O2SAT 97
== END 2018-01-16 21:53 | disposition home or self-care (01) ==
LOC: H.ER 13:34
DX: F10.129 Alcohol abuse with intoxication, unspecified (principal); B85.2 Pediculosis, unspecified; J44.9 Chronic obstructive pulmonary disease, unspecified; I10 Essential (primary) hypertension

== ENCOUNTER 2018-01-20 12:59 | Emergency (ER) | payer MEDICAID ==
[2018-01-20 12:59] VITALS: BMI 26.6
[2018-01-20 13:04] VITALS: TEMP 98; O2SAT 100
--- NOTE | 2018-01-20 15:45 | ED PDOC ---
HPI: Psych/Substance Abuse Time Seen by Provider: 01/20/18 13:12 Chief Complaint (Nursing): Alcohol Ingestion Chief Complaint (Provider): Alcohol Ingestion History Per: Patient History/Exam Limitations: no limitations Onset/Duration Of Symptoms: Mins (prior to arrival) Current Symptoms Are (Timing): Still Present Suicide/Self Injury Attempted (Context): None Modifying Factor(s): Alcohol Additional Complaint(s): 47 year old male brought to the ED via EMS after being found asleep on the street prior to arrival. Patient admits to drinking and reports no trauma or other injury. He is asking for a bed to sleep in. No other medical complaints. PMD: none provided Past Medical History Reviewed: Historical Data, Nursing Documentation, Vital Signs Vital Signs: Last Vital Signs Temp 98.0 F 01/20/18 13:02 Pulse 91 H 01/20/18 13:02 Resp 16 01/20/18 13:02 BP 108/74 01/20/18 13:02 Pulse Ox 100 01/20/18 13:02 - Medical History PMH: Asthma, Bronchitis, COPD, HTN, Pneumonia, Seizures Denies: HIV, Chronic Kidney Disease - Surgical History Surgical History: Hernia Repair (ventral) - Family History Family History: States: Unknown Family Hx - Social History Current smoker - smoking cessation education provided: Yes (Somedays Smoker) Alcohol: Social Drugs: Denies - Immunization History Hx Tetanus Toxoid Vaccination: No Hx Influenza Vaccination: No Hx Pneumococcal Vaccination: No - Home Medications Home Medications: Ambulatory Orders Medication Instructions Recorded Albuterol 0.083% [Albuterol 0.083% 2.5 mg INH RQ6 PRN #0 neb 10/08/16 Inhal Ghada (2.5 mg/3 ml) UD] Tiotropium [place] Inhaler 1 inhaler INH DAILY #1 inhaler 10/08/16 [Spiriva Inhalation Handihaler Device] Albuterol HFA [Ventolin HFA 90 2 puff IH Q4 PRN #1 inhaler 02/27/17 mcg/actuation (8 g)] Albuterol HFA [Ventolin HFA 90 1 puff IH BID PRN #1 unit 03/25/17 mcg/actuation (8 g)] Doxycycline Hyclate 100 mg PO BID #14 cap 07/14/17 Doxycycline Monohydrate 100 mg PO BID #14 capsule 07/14/17 Mupirocin 2% Cream [Bactroban 1 applic TOP DAILY #1 tube 07/14/17 Cream] Albuterol HFA [Ventolin HFA 90 2 puff IH Q6 #200 puff 07/25/17 mcg/actuation (8 g)] predniSONE [predniSONE Tab] 20 mg PO BID #8 tab 07/25/17 Fluticasone/Salmeterol 250/50 1 puff IH Q12 #1 inh 08/22/17 [Advair Diskus] predniSONE [predniSONE Tab] 60 mg PO QAM #12 tab 08/22/17 Fluticasone/Salmeterol 100/50 1 puff IH BID #2 dsk 09/03/17 [Advair Diskus 100/50] Albuterol HFA [Ventolin HFA 90 2 puff IH Q6 #200 puff 09/04/17 mcg/actuation (8 g)] Tiotropium [Spiriva] 18 mcg IH DAILY #1 cap 09/04/17 predniSONE [predniSONE Tab] 20 mg PO BID #8 tab 09/04/17 Azithromycin [Zithromax] 250 mg PO DAILY #6 tab 09/05/17 Fluticasone/Salmeterol 250/50 1 puff IH Q12 #28 puff 09/07/17 [Advair Diskus] Albuterol HFA [Ventolin HFA 90 1 - 2 puff IH Q6 PRN #1 inhaler 09/14/17 mcg/actuation (8 g)] predniSONE [predniSONE Tab] 60 mg PO QAM #12 tab 09/14/17 Azithromycin [Zithromax] 250 mg PO DAILY #6 tab 10/05/17 predniSONE [predniSONE Tab] 20 mg PO BID #8 tab 10/05/17 Tiotropium [Spiriva] 18 mcg IH DAILY #1 dev 10/06/17 Budesonide/Formoterol Fumarate 2 puff IH BID #1 aer 10/08/17 [Symbicort] Permethrin 5% [Permethrin] 60 gm TP ONCE PRN #1 tube 10/20/17 Permethrin 1% [Permethrin 60 Ml] 60 ml TP ONCE #1 bottle 12/16/17 - Allergies Allergies/Adverse Reactions: Allergies Allergy/AdvReac Type Severity Reaction Status Date / Time No Known Allergies Allergy Verified 12/16/17 05:23 Review of Systems ROS Statement: Except As Marked, All Systems Reviewed And Found Negative Physical Exam - Reviewed Nursing Documentation Reviewed: Yes Vital Signs Reviewed: Yes - Physical Exam Comments: GENERAL APPEARANCE: Patient is ill kept, sleeping but arousable, +odor of etoh, oriented x 3, in no acute distress. SKIN: Warm, dry; (-) cyanosis HEAD: (-) scalp swelling, (-) scalp tenderness. EYES: (-) conjunctival pallor, (-) scleral icterus, (-) nystagmus. ENMT: Mucous membranes moist. Airway patent: (-) stridor. NECK: (-) tenderness, (-) stiffness. CHEST AND RESPIRATORY: (-) rales, (-) rhonchi, (-) wheezes; breath sounds equal. ABDOMEN: Soft, (-) distention, (-) tenderness, (-) guarding. EXTREMITIES: (-) tenderness, (-) edema. NEURO AND PSYCH: Mental status as above. Affect: Calm and cooperative. ribbon cutter: Intact. Pupils equal and reactive; EOMI; (-) facial asymmetry. Strength symmetric. - ECG O2 Sat by Pulse Oximetry: 100 (RA) Pulse Ox Interpretation: Normal Medical Decision Making Medical Decision Makin:00 1st re-evaluation Patient is resting in bed comfortably. He is asleep but easily arousable. Still intoxicated and will continue to be observed in the ED. 22:30 2nd re-evaluation On reevaluation, the patient is awake, alert, oriented 3 in no acute distress. Patient is speaking in full sentences, he is able to stand up and ambulate in the emergency room with a normal gait. Patient has no additional complaints at this time. States that he feels comfortable the emergency room. Advised to follow up with the clinic. Return to the emergency room at any time for any new or worsening symptoms. Scribe Attestation: Documented by Bhupendra Encarnacion acting as a scribe for BRANDY Pimentel MDibe Attestation: All medical record entries made by the Scribe were at my direction and personally dictated by me. I have reviewed the chart and agree that the record accurately reflects my personal performance of the history, physical exam, medical decision making, and the department course for this patient. I have also personally directed, reviewed, and agree with the discharge instructions and disposition. Disposition - Clinical Impression Clinical Impression: Alcohol intoxication - Patient ED Disposition Is Patient to be Admitted: No Counseled Patient/Family Regarding: Diagnosis, Need For Followup - Disposition [facility] Disposition: Routine/Home Disposition Time: 22:30 Condition: STABLE Instructions: Alcohol Abuse and Alcoholism (DC) Forms: [employer] (Indian) - [place] / [employer] / Resident Statement MD/DO has reviewed & agrees with the documentation as recorded.
[2018-01-20 23:14] VITALS: BP 105/61; PULSE 89; RESP 18
== END 2018-01-20 23:25 | disposition home or self-care (01) ==
LOC: H.ER 12:59
DX: F10.129 Alcohol abuse with intoxication, unspecified (principal); F17.200 Nicotine dependence, unspecified, uncomplicated; I10 Essential (primary) hypertension; J44.9 Chronic obstructive pulmonary disease, unspecified

== ENCOUNTER 2018-02-04 13:30 | Emergency (ER) | payer MEDICAID, OTHER ==
[2018-02-04 13:31] VITALS: BMI 26.6
[2018-02-04] MEDS ORDERED: Permethrin 5% CREAM TOP STA (14:29)
--- NOTE | 2018-02-04 14:53 | ED PDOC ---
HPI: Psych/Substance Abuse Time Seen by Provider: 02/04/18 13:36 Chief Complaint (Nursing): Alcohol Ingestion Chief Complaint (Provider): Public Intoxication History Per: Patient, EMS History/Exam Limitations: no limitations Suicide/Self Injury Attempted (Context): None Modifying Factor(s): Alcohol Additional Complaint(s): 47 year old male who is well known to the provider is brought into the emergency department by emergency medical services for public intoxication. As per EMs, patient was [place] in a park and admits to drinking 1 gallon of vodka. Patient currently offers no medical complaints Past Medical History Reviewed: Historical Data, Nursing Documentation, Vital Signs Vital Signs: Last Vital Signs Temp 98 F 02/04/18 13:31 Pulse 99 H 02/04/18 13:31 Resp 18 02/04/18 13:31 BP 101/66 02/04/18 13:31 Pulse Ox 96 02/04/18 13:31 - Medical History PMH: Asthma, Bronchitis, COPD, HTN, Pneumonia, Seizures Denies: HIV, Chronic Kidney Disease - Surgical History Surgical History: Hernia Repair (ventral) - Family History Family History: States: Unknown Family Hx - Immunization History Hx Tetanus Toxoid Vaccination: No Hx Influenza Vaccination: No Hx Pneumococcal Vaccination: No - Home Medications Home Medications: Ambulatory Orders Medication Instructions Recorded Albuterol 0.083% [Albuterol 0.083% 2.5 mg INH RQ6 PRN #0 neb 10/08/16 Inhal Ghada (2.5 mg/3 ml) UD] Tiotropium [place] Inhaler 1 inhaler INH DAILY #1 inhaler 10/08/16 [Spiriva Inhalation Handihaler Device] Albuterol HFA [Ventolin HFA 90 2 puff IH Q4 PRN #1 inhaler 02/27/17 mcg/actuation (8 g)] Albuterol HFA [Ventolin HFA 90 1 puff IH BID PRN #1 unit 03/25/17 mcg/actuation (8 g)] Doxycycline Hyclate 100 mg PO BID #14 cap 07/14/17 Doxycycline Monohydrate 100 mg PO BID #14 capsule 07/14/17 Mupirocin 2% Cream [Bactroban 1 applic TOP DAILY #1 tube 07/14/17 Cream] Albuterol HFA [Ventolin HFA 90 2 puff IH Q6 #200 puff 07/25/17 mcg/actuation (8 g)] predniSONE [predniSONE Tab] 20 mg PO BID #8 tab 07/25/17 Fluticasone/Salmeterol 250/50 1 puff IH Q12 #1 inh 08/22/17 [Advair Diskus] predniSONE [predniSONE Tab] 60 mg PO QAM #12 tab 08/22/17 Fluticasone/Salmeterol 100/50 1 puff IH BID #2 dsk 09/03/17 [Advair Diskus 100/50] Albuterol HFA [Ventolin HFA 90 2 puff IH Q6 #200 puff 09/04/17 mcg/actuation (8 g)] Tiotropium [Spiriva] 18 mcg IH DAILY #1 cap 09/04/17 predniSONE [predniSONE Tab] 20 mg PO BID #8 tab 09/04/17 Azithromycin [Zithromax] 250 mg PO DAILY #6 tab 09/05/17 Fluticasone/Salmeterol 250/50 1 puff IH Q12 #28 puff 09/07/17 [Advair Diskus] Albuterol HFA [Ventolin HFA 90 1 - 2 puff IH Q6 PRN #1 inhaler 09/14/17 mcg/actuation (8 g)] predniSONE [predniSONE Tab] 60 mg PO QAM #12 tab 09/14/17 Azithromycin [Zithromax] 250 mg PO DAILY #6 tab 10/05/17 predniSONE [predniSONE Tab] 20 mg PO BID #8 tab 10/05/17 Tiotropium [Spiriva] 18 mcg IH DAILY #1 dev 10/06/17 Budesonide/Formoterol Fumarate 2 puff IH BID #1 aer 10/08/17 [Symbicort] Permethrin 5% [Permethrin] 60 gm TP ONCE PRN #1 tube 10/20/17 Permethrin 1% [Permethrin 60 Ml] 60 ml TP ONCE #1 bottle 12/16/17 Permethrin 5% [Permethrin 5% Cream] 60 gm EXT ONCE #1 tube 02/04/18 - Allergies Allergies/Adverse Reactions: Allergies Allergy/AdvReac Type Severity Reaction Status Date / Time No Known Allergies Allergy Verified 12/16/17 05:23 Review of Systems Constitutional: Positive for: Other (Public Intoxication) Cardiovascular: Negative for: Chest Pain Respiratory: Negative for: Shortness of Breath Gastrointestinal: Negative for: Abdominal Pain Physical Exam - Reviewed Nursing Documentation Reviewed: Yes Vital Signs Reviewed: Yes - Physical Exam Appears: Positive for: No Acute Distress Head Exam: Positive for: NORMAL INSPECTION Skin: Positive for: Normal Color, Warm, Dry Eye Exam: Positive for: Normal appearance, EOMI, PERRL Cardiovascular/Chest: Positive for: Regular Rate, Rhythm, Chest Non Tender. Negative for: Tachycardia Respiratory: Positive for: Normal Breath Sounds. Negative for: Wheezing, Respiratory Distress Gastrointestinal/Abdominal: Positive for: Normal Exam, Bowel Sounds, Soft. Negative for: Tenderness, Guarding, Rebound Back: Positive for: Normal Inspection. Negative for: L CVA Tenderness, R CVA Tenderness, Vertebral Tenderness Neurologic/Psych: Positive for: Alert (AO x2), Oriented, Gait (unsteady), Other (slurred speech; alcohol on breath) - ECG O2 Sat by Pulse Oximetry: 96 (RA) Pulse Ox Interpretation: Normal Medical Decision Making Medical Decision Makin Initial impression 47 year old male presents to the emergency department for public intoxication Initial plan: * Alcohol Serum * Accucheck - 85 1420 Pt. c/o pruritus to entire body. Reports being dx with lice last month but states he was not able to fill Rx for Permethrin. Skin: scattered erythematous papules with excoriations without vesicles, surrounding erythema, swelling, or burrowing noted Permethrin ordered. 1530 Pt. had shower in ED and Permethrin cream was applied. 173 On re-evaluation, pt. sleeping comfortably. 2103 Sleeping comfortably. Easily arousable. No distress. Offers no complaints. 0 On final evaluation, pt. sitting up and in no distress. Offers no complaints. Gait steady, unassisted. Requesting Rx for Permethrin. Documented by Estephania Jon acting as a scribe for Michi Bucio PA-C. All medical record entries made by the Scribe were at my direction and personally dictated by me. I have reviewed the chart and agree that the record accurately reflects my personal performance of the history, physical exam, medical decision making, and the department course for this patient. I have also personally directed, reviewed, and agree with the discharge instructions and disposition. Disposition - Clinical Impression Clinical Impression: Alcohol intoxication, Lice - Patient ED Disposition Is Patient to be Admitted: No - Disposition Referrals: [facility] [Outside] Disposition: Routine/Home Disposition Time: 23:44 Condition: STABLE Additional Instructions: Follow up with [facility] for further evaluation. STOP DRINKING ALCOHOL Prescriptions: Permethrin 5% [Permethrin 5% Cream] 60 gm EXT ONCE #1 tube Instructions: Lice, Alcohol Abuse and Alcoholism (DC) Forms: [employer] (Ukrainian) Print Language: CITIZEN OF [place]
[2018-02-04 21:04] VITALS: O2SAT 96
[2018-02-04 23:48] VITALS: BP 101/70; PULSE 91; RESP 18; TEMP 98
== END 2018-02-04 23:48 | disposition home or self-care (01) ==
LOC: H.ER 13:30
DX: F10.129 Alcohol abuse with intoxication, unspecified (principal); B85.2 Pediculosis, unspecified; I10 Essential (primary) hypertension; J44.9 Chronic obstructive pulmonary disease, unspecified

== ENCOUNTER 2018-03-10 18:13 | Emergency (ER) | payer MEDICAID ==
[2018-03-10 18:14] VITALS: BMI 26.6
[2018-03-10 18:18] VITALS: RESP 16
--- NOTE | 2018-03-10 19:56 | ED PDOC ---
HPI: Psych/Substance Abuse Time Seen by Provider: 03/10/18 18:39 Chief Complaint (Nursing): Alcohol Ingestion Chief Complaint (Provider): Alcohol Ingestion History Per: Patient, EMS History/Exam Limitations: no limitations Current Symptoms Are (Timing): Still Present Additional Complaint(s): 48-year-old male brought in by EMS for apparent intoxication. Pt appears intoxicated. Pt denies any complaints. PMD: Provider TBD Past Medical History Reviewed: Historical Data, Nursing Documentation, Vital Signs Vital Signs: Last Vital Signs Temp 98.4 F 03/10/18 18:17 Pulse 106 H 03/10/18 18:17 Resp 16 03/10/18 18:17 BP 126/84 03/10/18 18:17 Pulse Ox 99 03/10/18 18:17 - Medical History PMH: Asthma, Bronchitis, COPD, HTN, Pneumonia, Seizures Denies: HIV, Chronic Kidney Disease - Surgical History Surgical History: Hernia Repair (ventral) - Family History Family History: States: Unknown Family Hx - Immunization History Hx Tetanus Toxoid Vaccination: No Hx Influenza Vaccination: No Hx Pneumococcal Vaccination: No - Home Medications Home Medications: Ambulatory Orders Medication Instructions Recorded Albuterol 0.083% [Albuterol 0.083% 2.5 mg INH RQ6 PRN #0 neb 10/08/16 Inhal Ghada (2.5 mg/3 ml) UD] Tiotropium [place] Inhaler 1 inhaler INH DAILY #1 inhaler 10/08/16 [Spiriva Inhalation Handihaler Device] Albuterol HFA [Ventolin HFA 90 2 puff IH Q4 PRN #1 inhaler 02/27/17 mcg/actuation (8 g)] Albuterol HFA [Ventolin HFA 90 1 puff IH BID PRN #1 unit 03/25/17 mcg/actuation (8 g)] Doxycycline Hyclate 100 mg PO BID #14 cap 07/14/17 Doxycycline Monohydrate 100 mg PO BID #14 capsule 07/14/17 Mupirocin 2% Cream [Bactroban 1 applic TOP DAILY #1 tube 07/14/17 Cream] Albuterol HFA [Ventolin HFA 90 2 puff IH Q6 #200 puff 07/25/17 mcg/actuation (8 g)] predniSONE [predniSONE Tab] 20 mg PO BID #8 tab 07/25/17 Fluticasone/Salmeterol 250/50 1 puff IH Q12 #1 inh 08/22/17 [Advair Diskus] predniSONE [predniSONE Tab] 60 mg PO QAM #12 tab 08/22/17 Fluticasone/Salmeterol 100/50 1 puff IH BID #2 dsk 09/03/17 [Advair Diskus 100/50] Albuterol HFA [Ventolin HFA 90 2 puff IH Q6 #200 puff 09/04/17 mcg/actuation (8 g)] Tiotropium [Spiriva] 18 mcg IH DAILY #1 cap 09/04/17 predniSONE [predniSONE Tab] 20 mg PO BID #8 tab 09/04/17 Azithromycin [Zithromax] 250 mg PO DAILY #6 tab 09/05/17 Fluticasone/Salmeterol 250/50 1 puff IH Q12 #28 puff 09/07/17 [Advair Diskus] Albuterol HFA [Ventolin HFA 90 1 - 2 puff IH Q6 PRN #1 inhaler 09/14/17 mcg/actuation (8 g)] predniSONE [predniSONE Tab] 60 mg PO QAM #12 tab 09/14/17 Azithromycin [Zithromax] 250 mg PO DAILY #6 tab 10/05/17 predniSONE [predniSONE Tab] 20 mg PO BID #8 tab 10/05/17 Tiotropium [Spiriva] 18 mcg IH DAILY #1 dev 10/06/17 Budesonide/Formoterol Fumarate 2 puff IH BID #1 aer 10/08/17 [Symbicort] Permethrin 5% [Permethrin] 60 gm TP ONCE PRN #1 tube 10/20/17 Permethrin 1% [Permethrin 60 Ml] 60 ml TP ONCE #1 bottle 12/16/17 Permethrin 5% [Permethrin 5% Cream] 60 gm EXT ONCE #1 tube 02/04/18 - Allergies Allergies/Adverse Reactions: Allergies Allergy/AdvReac Type Severity Reaction Status Date / Time No Known Allergies Allergy Verified 12/16/17 05:23 Review of Systems ROS Statement: Except As Marked, All Systems Reviewed And Found Negative Physical Exam - Reviewed Nursing Documentation Reviewed: Yes Vital Signs Reviewed: Yes - Physical Exam Appears: Positive for: Well (Appears comfortable) Head Exam: Positive for: ATRAUMATIC, NORMAL INSPECTION, NORMOCEPHALIC Skin: Positive for: Normal Color, Warm, Dry Eye Exam: Positive for: EOMI, Normal appearance, PERRL ENT: Positive for: Normal ENT Inspection Neck: Positive for: Normal Cardiovascular/Chest: Positive for: Regular Rate, Rhythm Respiratory: Positive for: Normal Breath Sounds. Negative for: Respiratory Distress Gastrointestinal/Abdominal: Positive for: Normal Exam Back: Positive for: Normal Inspection Extremity: Positive for: Normal ROM, Deformity Neurologic/Psych: Positive for: Alert - ECG O2 Sat by Pulse Oximetry: 99 (RA) Pulse Ox Interpretation: Normal - Progress ED Course And Treament: Patient noted progressively sober in ED. Medical Decision Making Medical Decision Making: Time: 18:40 - POC Glucose - Observation until clinical sobriety POC Glucose Reveals 85 mg/dL [within range] Scribe Attestation: Documented by Kyle Garcia, acting as a scribe for Delmis Reyes PA-C. Provider Scribe Attestation: All medical record entries made by the Scribe were at my direction and personally dictated by me. I have reviewed the chart and agree that the record accurately reflects my personal performance of the history, physical exam, medical decision making, and the department course for this patient. I have also personally directed, reviewed, and agree with the discharge instructions and disposition. Disposition - Clinical Impression Clinical Impression: Alcohol abuse with intoxication - Patient ED Disposition Is Patient to be Admitted: No - Disposition Disposition: Routine/Home Disposition Time: 23:44 Condition: FAIR Instructions: Alcohol Abuse and Alcoholism (DC) Forms: [employer] (Icelandic)
[2018-03-11 02:04] VITALS: BP 118/84; PULSE 89; TEMP 97.9; O2SAT 97
== END 2018-03-11 02:01 | disposition home or self-care (01) ==
LOC: H.ER 18:13
DX: F10.129 Alcohol abuse with intoxication, unspecified (principal); I10 Essential (primary) hypertension; J44.9 Chronic obstructive pulmonary disease, unspecified

== ENCOUNTER 2018-03-31 18:29 | Emergency (ER) | payer MEDICAID ==
[2018-03-31 18:30] VITALS: BMI 26.6
--- NOTE | 2018-03-31 20:57 | ED PDOC ---
HPI: Psych/Substance Abuse Time Seen by Provider: 03/31/18 20:55 Chief Complaint (Nursing): Alcohol Ingestion Chief Complaint (Provider): alcohol ingestion History Per: Patient (48 y/o male undomiciled here for alcohol ingestion. Denies any complaints. ) Past Medical History Reviewed: Historical Data, Nursing Documentation, Vital Signs Vital Signs: Last Vital Signs Temp 98.2 F 03/31/18 19:26 Pulse 88 03/31/18 19:26 Resp 16 03/31/18 19:26 BP 111/78 03/31/18 19:26 Pulse Ox 98 03/31/18 19:26 - Medical History PMH: Asthma, Bronchitis, COPD, HTN, Pneumonia, Seizures Denies: HIV, Chronic Kidney Disease - Surgical History Surgical History: Hernia Repair (ventral) - Family History Family History: States: Unknown Family Hx - Immunization History Hx Tetanus Toxoid Vaccination: No Hx Influenza Vaccination: No Hx Pneumococcal Vaccination: No - Home Medications Home Medications: Ambulatory Orders Medication Instructions Recorded Albuterol 0.083% [Albuterol 0.083% 2.5 mg INH RQ6 PRN #0 neb 10/08/16 Inhal Ghada (2.5 mg/3 ml) UD] Tiotropium [place] Inhaler 1 inhaler INH DAILY #1 inhaler 10/08/16 [Spiriva Inhalation Handihaler Device] Albuterol HFA [Ventolin HFA 90 2 puff IH Q4 PRN #1 inhaler 02/27/17 mcg/actuation (8 g)] Albuterol HFA [Ventolin HFA 90 1 puff IH BID PRN #1 unit 03/25/17 mcg/actuation (8 g)] Doxycycline Hyclate 100 mg PO BID #14 cap 07/14/17 Doxycycline Monohydrate 100 mg PO BID #14 capsule 07/14/17 Mupirocin 2% Cream [Bactroban 1 applic TOP DAILY #1 tube 07/14/17 Cream] Albuterol HFA [Ventolin HFA 90 2 puff IH Q6 #200 puff 07/25/17 mcg/actuation (8 g)] predniSONE [predniSONE Tab] 20 mg PO BID #8 tab 07/25/17 Fluticasone/Salmeterol 250/50 1 puff IH Q12 #1 inh 08/22/17 [Advair Diskus] predniSONE [predniSONE Tab] 60 mg PO QAM #12 tab 08/22/17 Fluticasone/Salmeterol 100/50 1 puff IH BID #2 dsk 09/03/17 [Advair Diskus 100/50] Albuterol HFA [Ventolin HFA 90 2 puff IH Q6 #200 puff 09/04/17 mcg/actuation (8 g)] Tiotropium [Spiriva] 18 mcg IH DAILY #1 cap 09/04/17 predniSONE [predniSONE Tab] 20 mg PO BID #8 tab 09/04/17 Azithromycin [Zithromax] 250 mg PO DAILY #6 tab 09/05/17 Fluticasone/Salmeterol 250/50 1 puff IH Q12 #28 puff 09/07/17 [Advair Diskus] Albuterol HFA [Ventolin HFA 90 1 - 2 puff IH Q6 PRN #1 inhaler 09/14/17 mcg/actuation (8 g)] predniSONE [predniSONE Tab] 60 mg PO QAM #12 tab 09/14/17 Azithromycin [Zithromax] 250 mg PO DAILY #6 tab 10/05/17 predniSONE [predniSONE Tab] 20 mg PO BID #8 tab 10/05/17 Tiotropium [Spiriva] 18 mcg IH DAILY #1 dev 10/06/17 Budesonide/Formoterol Fumarate 2 puff IH BID #1 aer 10/08/17 [Symbicort] Permethrin 5% [Permethrin] 60 gm TP ONCE PRN #1 tube 10/20/17 Permethrin 1% [Permethrin 60 Ml] 60 ml TP ONCE #1 bottle 12/16/17 Permethrin 5% [Permethrin 5% Cream] 60 gm EXT ONCE #1 tube 02/04/18 - Allergies Allergies/Adverse Reactions: Allergies Allergy/AdvReac Type Severity Reaction Status Date / Time No Known Allergies Allergy Verified 03/31/18 19:30 Review of Systems ROS Statement: Except As Marked, All Systems Reviewed And Found Negative Physical Exam - Reviewed Nursing Documentation Reviewed: Yes Vital Signs Reviewed: Yes - Physical Exam Appears: Positive for: Well, Non-toxic, No Acute Distress Head Exam: Positive for: ATRAUMATIC, NORMAL INSPECTION, NORMOCEPHALIC Skin: Positive for: Normal Color, Warm, DRY Eye Exam: Positive for: EOMI, Normal appearance, PERRL ENT: Positive for: Normal ENT Inspection Neck: Positive for: Normal, Painless ROM Cardiovascular/Chest: Positive for: Regular Rate, Rhythm Respiratory: Positive for: CNT, Normal Breath Sounds Gastrointestinal/Abdominal: Positive for: Normal Exam, Soft Back: Positive for: Normal Inspection Extremity: Positive for: Normal ROM Neurologic/Psych: Positive for: Alert, Oriented - ECG O2 Sat by Pulse Oximetry: 98 - Progress ED Course And Treament: Patient noted watching TV/changing channels. Steady gait noted. Disposition - Clinical Impression Clinical Impression: Alcohol intoxication - Patient ED Disposition Is Patient to be Admitted: No - Disposition Referrals: [facility] [Outside] Disposition: Routine/Home Disposition Time: 20:56 Condition: FAIR Instructions: Alcohol Abuse and Alcoholism (DC)
[2018-03-31 22:03] VITALS: BP 119/82; PULSE 84; RESP 18; TEMP 98.7; O2SAT 97
== END 2018-03-31 22:15 | disposition home or self-care (01) ==
LOC: H.ER 18:29
DX: F10.129 Alcohol abuse with intoxication, unspecified (principal); I10 Essential (primary) hypertension; J44.9 Chronic obstructive pulmonary disease, unspecified

== ENCOUNTER 2018-06-06 04:06 | Emergency (ER) | payer MEDICAID ==
[2018-06-06 04:06] VITALS: BMI 26.6
[2018-06-06 04:20] VITALS: BP 120/80; TEMP 98.8
[2018-06-06 04:34] VITALS: O2SAT 97
[2018-06-06] MEDS ORDERED: Albuterol-Ipratrop 3 mg / 0.5 (3 ml) UD INH STA (04:47)
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
[2018-06-06 05:16] VITALS: PULSE 88; RESP 22
== END 2018-06-06 05:20 | disposition home or self-care (01) ==
LOC: H.ER 04:06
DX: J44.9 Chronic obstructive pulmonary disease, unspecified (principal); I10 Essential (primary) hypertension

== ENCOUNTER 2018-06-21 21:37 | Emergency (ER) | payer MEDICAID ==
[2018-06-21 21:37] VITALS: BMI 26.6
[2018-06-21 21:52] VITALS: BP 105/74; PULSE 98; RESP 16; TEMP 98.4; O2SAT 96
[2018-06-21] MEDS ORDERED: Albuterol-Ipratrop 3 mg / 0.5 (3 ml) UD INH STA (21:59)
[2018-06-21] MEDS ORDERED: Albuterol-Ipratrop 3 mg / 0.5 (3 ml) UD ONE (22:00)
--- NOTE | 2018-06-21 22:08 | ED PDOC ---
HPI: Influenza Time Seen by Provider: 06/21/18 21:54 Chief Complaint: Cough, Cold, Congestion Past Medical History Vital Signs: Last Vital Signs Temp 98.4 F 06/21/18 21:49 Pulse 98 H 06/21/18 21:49 Resp 16 06/21/18 21:49 BP 105/74 06/21/18 21:49 Pulse Ox 96 06/21/18 21:49 - Medical History PMH: Asthma, Bronchitis, COPD, HTN, Pneumonia, Seizures Denies: HIV, Chronic Kidney Disease - Surgical History Surgical History: Hernia Repair (ventral) - Family History Family History: States: Unknown Family Hx - Immunization History Hx Tetanus Toxoid Vaccination: No Hx Influenza Vaccination: No Hx Pneumococcal Vaccination: No - Home Medications Home Medications: Ambulatory Orders Medication Instructions Recorded Albuterol 0.083% [Albuterol 0.083% 2.5 mg INH RQ6 PRN #0 neb 10/08/16 Inhal Ghada (2.5 mg/3 ml) UD] Tiotropium [place] Inhaler 1 inhaler INH DAILY #1 inhaler 10/08/16 [Spiriva Inhalation Handihaler Device] Albuterol HFA [Ventolin HFA 90 1 puff IH BID PRN #1 unit 03/25/17 mcg/actuation (8 g)] Doxycycline Hyclate 100 mg PO BID #14 cap 07/14/17 Doxycycline Monohydrate 100 mg PO BID #14 capsule 07/14/17 Mupirocin 2% Cream [Bactroban 1 applic TOP DAILY #1 tube 07/14/17 Cream] Albuterol HFA [Ventolin HFA 90 2 puff IH Q6 #200 puff 07/25/17 mcg/actuation (8 g)] predniSONE [predniSONE Tab] 20 mg PO BID #8 tab 07/25/17 Fluticasone/Salmeterol 250/50 1 puff IH Q12 #1 inh 08/22/17 [Advair Diskus] predniSONE [predniSONE Tab] 60 mg PO QAM #12 tab 08/22/17 Fluticasone/Salmeterol 100/50 1 puff IH BID #2 dsk 09/03/17 [Advair Diskus 100/50] Albuterol HFA [Ventolin HFA 90 2 puff IH Q6 #200 puff 12/10/17 mcg/actuation (8 g)] Tiotropium [Spiriva] 18 mcg IH DAILY #1 cap 09/04/17 predniSONE [predniSONE Tab] 20 mg PO BID #8 tab 09/04/17 Azithromycin [Zithromax] 250 mg PO DAILY #6 tab 09/05/17 Fluticasone/Salmeterol 250/50 1 puff IH Q12 #28 puff 09/07/17 [Advair Diskus] Albuterol HFA [Ventolin HFA 90 1 - 2 puff IH Q6 PRN #1 inhaler 09/14/17 mcg/actuation (8 g)] predniSONE [predniSONE Tab] 60 mg PO QAM #12 tab 09/14/17 Azithromycin [Zithromax] 250 mg PO DAILY #6 tab 10/05/17 predniSONE [predniSONE Tab] 20 mg PO BID #8 tab 10/05/17 Tiotropium [Spiriva] 18 mcg IH DAILY #1 dev 10/06/17 Budesonide/Formoterol Fumarate 2 puff IH BID #1 aer 10/08/17 [Symbicort] Permethrin 5% [Permethrin] 60 gm TP ONCE PRN #1 tube 10/20/17 Permethrin 1% [Permethrin 60 Ml] 60 ml TP ONCE #1 bottle 12/16/17 Permethrin 5% [Permethrin 5% Cream] 60 gm EXT ONCE #1 tube 02/04/18 Albuterol HFA [Ventolin HFA 90 2 puff IH Q4 PRN #1 inhaler 06/06/18 mcg/actuation (8 g)] - Allergies Allergies/Adverse Reactions: Allergies Allergy/AdvReac Type Severity Reaction Status Date / Time No Known Allergies Allergy Verified 06/21/18 21:49 - ECG O2 Sat by Pulse Oximetry: 96 Disposition - Disposition
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
== END 2018-06-21 22:25 | disposition home or self-care (01) ==
LOC: H.ER 21:37
DX: J98.01 Acute bronchospasm (principal)

== ENCOUNTER 2018-07-03 03:24 | Emergency (ER) | payer MEDICAID ==
[2018-07-03 03:25] VITALS: BMI 26.6
[2018-07-03 03:57] VITALS: BP 113/74; TEMP 98.6
[2018-07-03] MEDS ORDERED: Albuterol-Ipratrop 3 mg / 0.5 (3 ml) UD INH STA ×2 (04:01→04:02)
[2018-07-03] MEDS ORDERED: Albuterol-Ipratrop 3 mg / 0.5 (3 ml) UD ONE ×2 (04:16→04:17)
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
[2018-07-03 05:28] VITALS: PULSE 111; RESP 22; O2SAT 95
== END 2018-07-03 05:27 | disposition home or self-care (01) ==
LOC: H.ER 03:24
DX: J44.9 Chronic obstructive pulmonary disease, unspecified (principal)

== ENCOUNTER 2018-07-22 22:36 | Emergency (ER) | payer MEDICAID ==
[2018-07-22 22:36] VITALS: BMI 26.6
--- NOTE | 2018-07-22 23:19 | ED PDOC ---
HPI: Psych/Substance Abuse Time Seen by Provider: 07/22/18 22:49 Chief Complaint (Nursing): Alcohol Ingestion Chief Complaint (Provider): Alcohol Intoxication History Per: Patient History/Exam Limitations: no limitations Onset/Duration Of Symptoms: Hrs (today) Current Symptoms Are (Timing): Still Present Additional Complaint(s): Micky Chappell, a 48 year old male with past medical history of chronic alcoholism and asthma, presents to the emergency department with public intoxication onset today. Patient has no complaints at this time but does admit to drinking alcohol. He denies any injuries at this time. No further medical complaints. Past Medical History Reviewed: Historical Data, Nursing Documentation, Vital Signs Vital Signs: Last Vital Signs Temp 98.8 F 07/22/18 22:42 Pulse 103 H 07/22/18 22:42 Resp 18 07/22/18 22:42 BP 130/88 07/22/18 22:42 Pulse Ox 95 07/22/18 22:42 - Medical History PMH: Asthma, Bronchitis, COPD, HTN, Pneumonia, Seizures Denies: HIV, Chronic Kidney Disease Other PMH: chronic alcoholism - Surgical History Surgical History: Hernia Repair (ventral) - Family History Family History: States: Unknown Family Hx - Social History Alcohol: Other (chronic alcoholism) - Immunization History Hx Tetanus Toxoid Vaccination: No Hx Pneumococcal Vaccination: No - Home Medications Home Medications: Ambulatory Orders Medication Instructions Recorded Albuterol 0.083% [Albuterol 0.083% 2.5 mg INH RQ6 PRN #0 neb 10/08/16 Inhal Ghada (2.5 mg/3 ml) UD] Tiotropium [employer] Inhaler 1 inhaler INH DAILY #1 inhaler 10/08/16 [Spiriva Inhalation Handihaler Device] Albuterol HFA [Ventolin HFA 90 1 puff IH BID PRN #1 unit 03/25/17 mcg/actuation (8 g)] Doxycycline Hyclate 100 mg PO BID #14 cap 07/14/17 Doxycycline Monohydrate 100 mg PO BID #14 capsule 07/14/17 Mupirocin 2% Cream [Bactroban 1 applic TOP DAILY #1 tube 07/14/17 Cream] Albuterol HFA [Ventolin HFA 90 2 puff IH Q6 #200 puff 07/25/17 mcg/actuation (8 g)] predniSONE [predniSONE Tab] 20 mg PO BID #8 tab 07/25/17 Fluticasone/Salmeterol 250/50 1 puff IH Q12 #1 inh 08/22/17 [Advair Diskus] predniSONE [predniSONE Tab] 60 mg PO QAM #12 tab 08/22/17 Fluticasone/Salmeterol 100/50 1 puff IH BID #2 dsk 09/03/17 [Advair Diskus 100/50] Albuterol HFA [Ventolin HFA 90 2 puff IH Q6 #200 puff 09/04/17 mcg/actuation (8 g)] Tiotropium [Spiriva] 18 mcg IH DAILY #1 cap 09/04/17 predniSONE [predniSONE Tab] 20 mg PO BID #8 tab 09/04/17 Azithromycin [Zithromax] 250 mg PO DAILY #6 tab 09/05/17 Fluticasone/Salmeterol 250/50 1 puff IH Q12 #28 puff 09/07/17 [Advair Diskus] Albuterol HFA [Ventolin HFA 90 1 - 2 puff IH Q6 PRN #1 inhaler 09/14/17 mcg/actuation (8 g)] predniSONE [predniSONE Tab] 60 mg PO QAM #12 tab 09/14/17 Azithromycin [Zithromax] 250 mg PO DAILY #6 tab 10/05/17 predniSONE [predniSONE Tab] 20 mg PO BID #8 tab 10/05/17 Tiotropium [Spiriva] 18 mcg IH DAILY #1 dev 10/06/17 Budesonide/Formoterol Fumarate 2 puff IH BID #1 aer 10/08/17 [Symbicort] Permethrin 5% [Permethrin] 60 gm TP ONCE PRN #1 tube 10/20/17 Permethrin 1% [Permethrin 60 Ml] 60 ml TP ONCE #1 bottle 12/16/17 Permethrin 5% [Permethrin 5% Cream] 60 gm EXT ONCE #1 tube 02/04/18 Albuterol HFA [Ventolin HFA 90 2 puff IH Q4 PRN #1 inhaler 06/06/18 mcg/actuation (8 g)] Albuterol HFA [Ventolin HFA 90 2 puff IH [id number] PRN #60 puff 06/21/18 mcg/actuation (8 g)] Cetirizine HCl [Zyrtec] 10 mg PO DAILY PRN #10 capsule 06/21/18 Tiotropium [Spiriva] 2 inh IH DAILY #1 each 06/21/18 Cetirizine HCl/Pseudoephedrine 1 each PO BID #30 tab.er.12h 07/03/18 [Zyrtec-D Tablet] predniSONE [predniSONE Tab] 60 mg PO DAILY #9 tab 07/03/18 - Allergies Allergies/Adverse Reactions: Allergies Allergy/AdvReac Type Severity Reaction Status Date / Time No Known Allergies Allergy Verified 07/03/18 03:55 Review of Systems ROS Statement: Except As Marked, All Systems Reviewed And Found Negative Psych: Positive for: Other (intoxicated-alcohol) Physical Exam - Reviewed Nursing Documentation Reviewed: Yes Vital Signs Reviewed: Yes - Physical Exam Appears: Positive for: Well, Non-toxic, No Acute Distress Head Exam: Positive for: ATRAUMATIC, NORMAL INSPECTION, NORMOCEPHALIC Skin: Positive for: Normal Color, Warm, DRY Eye Exam: Positive for: EOMI, Normal appearance, PERRL ENT: Positive for: Normal ENT Inspection Neck: Positive for: Normal, Painless ROM Cardiovascular/Chest: Positive for: Regular Rate, Rhythm Respiratory: Positive for: Normal Breath Sounds. Negative for: Respiratory Distress Gastrointestinal/Abdominal: Positive for: Normal Exam, Soft Back: Positive for: Normal Inspection Extremity: Positive for: Normal ROM Neurologic/Psych: Positive for: Gait (unsteady), Other (disheveled and intoxicated appearing) - ECG O2 Sat by Pulse Oximetry: 95 (RA) Pulse Ox Interpretation: Normal Medical Decision Making Medical Decision Making: Time: 22:49 A/P: intoxication, no sign of injury, will evaluate until sober Initial Plan: --Alcohol serum [address] Ocampo pending sobriety Scribe Attestation: Documented by Negar Diop, acting as a scribe for Bassem Moore MD. Provider Scribe Attestation: All medical record entries made by the Scribe were at my direction and person ally dictated by me. I have reviewed the chart and agree that the record accurately reflects my personal performance of the history, physical exam, medical decision making, and the department course for this patient. I have also personally directed, reviewed, and agree with the discharge instructions and disposition. Disposition - Clinical Impression Clinical Impression: Alcohol intoxication - Patient ED Disposition Is Patient to be Admitted: Transfer of Care - Disposition Disposition: Transfer of Care Disposition Time: 07:00 Condition: STABLE Forms: [employer] (Kazakh) Patient Signed Over To: Clary Ocampo Handoff Comments: pending sobriety
--- NOTE | 2018-07-23 10:38 | ED PDOC ---
- ECG O2 Sat by Pulse Oximetry: 95 Medical Decision Making Medical Decision Making: received patient from Dr. Moore. Patient here because of alcohol intoxication. Patient is now steady in gait and states that he is ready for discharge. Disposition Doctor Will See Patient In The: Office Counseled Patient/Family Regarding: Diagnosis, Need For Followup - Clinical Impression Clinical Impression: Alcohol intoxication - POA Present On Arrival: None - Disposition Disposition: Routine/Home Disposition Time: 10:37 Condition: STABLE Instructions: Alcohol Abuse and Alcoholism (DC) Forms: [employer] (Swedish)
[2018-07-23 10:50] VITALS: BP 112/82; RESP 16; TEMP 98.4; O2SAT 96
[2018-07-23 11:27] VITALS: PULSE 87
== END 2018-07-23 10:53 | disposition home or self-care (01) ==
LOC: H.ER 22:36
DX: F10.129 Alcohol abuse with intoxication, unspecified (principal); Y90.8 Blood alcohol level of 240 mg/100 ml or more; I10 Essential (primary) hypertension; J44.9 Chronic obstructive pulmonary disease, unspecified

== ENCOUNTER 2018-08-16 00:27 | Emergency (ER) | payer MEDICAID ==
[2018-08-16 00:27] VITALS: BMI 26.6
--- NOTE | 2018-08-16 01:39 | ED PDOC ---
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 No further complaints. Past Medical History Reviewed: Historical Data, Nursing Documentation, Vital Signs Vital Signs: Last Vital Signs Temp 98.8 F 08/16/18 00:33 Pulse 89 08/16/18 00:33 Resp 16 08/16/18 00:33 BP 138/86 08/16/18 00:33 Pulse Ox 98 08/16/18 00:33 - Medical History PMH: Asthma, Bronchitis, COPD, HTN, Pneumonia, Seizures Denies: HIV, Chronic Kidney Disease - Surgical History Surgical History: Hernia Repair (ventral) - Family History Family History: States: Unknown Family Hx - Social History Alcohol: Other (yes) - Immunization History Hx Tetanus Toxoid Vaccination: No Hx Pneumococcal Vaccination: No - Home Medications Home Medications: Ambulatory Orders Medication Instructions Recorded Albuterol 0.083% [Albuterol 0.083% 2.5 mg INH RQ6 PRN #0 neb 10/08/16 Inhal Ghada (2.5 mg/3 ml) UD] Tiotropium [place] Inhaler 1 inhaler INH DAILY #1 inhaler 10/08/16 [Spiriva Inhalation Handihaler Device] Albuterol HFA [Ventolin HFA 90 1 puff IH BID PRN #1 unit 03/25/17 mcg/actuation (8 g)] Doxycycline Hyclate 100 mg PO BID #14 cap 07/14/17 Doxycycline Monohydrate 100 mg PO BID #14 capsule 07/14/17 Mupirocin 2% Cream [Bactroban 1 applic TOP DAILY #1 tube 07/14/17 Cream] Albuterol HFA [Ventolin HFA 90 2 puff IH Q6 #200 puff 07/25/17 mcg/actuation (8 g)] predniSONE [predniSONE Tab] 20 mg PO BID #8 tab 07/25/17 Fluticasone/Salmeterol 250/50 1 puff IH Q12 #1 inh 08/22/17 [Advair Diskus] predniSONE [predniSONE Tab] 60 mg PO QAM #12 tab 08/22/17 Fluticasone/Salmeterol 100/50 1 puff IH BID #2 dsk 09/03/17 [Advair Diskus 100/50] Albuterol HFA [Ventolin HFA 90 2 puff IH Q6 #200 puff 09/04/17 mcg/actuation (8 g)] Tiotropium [Spiriva] 18 mcg IH DAILY #1 cap 09/04/17 predniSONE [predniSONE Tab] 20 mg PO BID #8 tab 09/04/17 Azithromycin [Zithromax] 250 mg PO DAILY #6 tab 09/05/17 Fluticasone/Salmeterol 250/50 1 puff IH Q12 #28 puff 09/07/17 [Advair Diskus] Albuterol HFA [Ventolin HFA 90 1 - 2 puff IH Q6 PRN #1 inhaler 09/14/17 mcg/actuation (8 g)] predniSONE [predniSONE Tab] 60 mg PO QAM #12 tab 09/14/17 Azithromycin [Zithromax] 250 mg PO DAILY #6 tab 10/05/17 predniSONE [predniSONE Tab] 20 mg PO BID #8 tab 10/05/17 Tiotropium [Spiriva] 18 mcg IH DAILY #1 dev 10/06/17 Budesonide/Formoterol Fumarate 2 puff IH BID #1 aer 10/08/17 [Symbicort] Permethrin 5% [Permethrin] 60 gm TP ONCE PRN #1 tube 10/20/17 Permethrin 1% [Permethrin 60 Ml] 60 ml TP ONCE #1 bottle 12/16/17 Permethrin 5% [Permethrin 5% Cream] 60 gm EXT ONCE #1 tube 02/04/18 Albuterol HFA [Ventolin HFA 90 2 puff IH Q4 PRN #1 inhaler 06/06/18 mcg/actuation (8 g)] Albuterol HFA [Ventolin HFA 90 2 puff IH [id number] PRN #60 puff 06/21/18 mcg/actuation (8 g)] Cetirizine HCl [Zyrtec] 10 mg PO DAILY PRN #10 capsule 06/21/18 Tiotropium [Spiriva] 2 inh IH DAILY #1 each 06/21/18 Cetirizine HCl/Pseudoephedrine 1 each PO BID #30 tab.er.12h 07/03/18 [Zyrtec-D Tablet] predniSONE [predniSONE Tab] 60 mg PO DAILY #9 tab 07/03/18 - Allergies Allergies/Adverse Reactions: Allergies Allergy/AdvReac Type Severity Reaction Status Date / Time No Known Allergies Allergy Verified 07/03/18 03:55 Review of Systems ROS Statement: Except As Marked, All Systems Reviewed And Found Negative Physical Exam - Reviewed Nursing Documentation Reviewed: Yes Vital Signs Reviewed: Yes - Physical Exam Appears: Positive for: Non-toxic, No Acute Distress Head Exam: Positive for: ATRAUMATIC Skin: Positive for: Normal Color, Warm, Dry Eye Exam: Positive for: Normal appearance, EOMI, PERRL Neck: Positive for: Normal Cardiovascular/Chest: Positive for: Regular Rate, Rhythm. Negative for: Murmur Respiratory: Positive for: Normal Breath Sounds. Negative for: Respiratory Distress Gastrointestinal/Abdominal: Positive for: Normal Exam, Soft. Negative for: Tenderness Back: Positive for: Normal Inspection Extremity: Positive for: Normal ROM (upper and lower). Negative for: Pedal Edema, Deformity Neurologic/Psych: Positive for: Alert, Oriented, Other (slurred speech) - ECG O2 Sat by Pulse Oximetry: 98 (RA) Pulse Ox Interpretation: Normal Medical Decision Making Medical Decision Making: Time: 140 Initial Impression: 48 yo male with ETOH intoxication Initial Plan: --labs Time: 541 --Patient is clinically sober for discharge home. Scribe Attestation: Documented by Jessa Encarnacion, acting as a scribe for Tomasz Hill MD Provider Scribe Attestation: All medical record entries made by the Scribe were at my direction and personally dictated by me. I have reviewed the chart and agree that the record accurately reflects my personal performance of the history, physical exam, medical decision making, and the department course for this patient. I have also personally directed, reviewed, and agree with the discharge instructions and disposition. Disposition - Clinical Impression Clinical Impression: Alcohol abuse with intoxication - Disposition Disposition Time: 05:42 Condition: STABLE Instructions: Alcohol Abuse and Alcoholism (DC) Forms: [employer] (Belarusian)
[2018-08-16 06:42] VITALS: BP 131/81; PULSE 84; RESP 17; TEMP 98.3; O2SAT 99
== END 2018-08-16 06:10 | disposition home or self-care (01) ==
LOC: H.ER 00:27
DX: F10.129 Alcohol abuse with intoxication, unspecified (principal); I10 Essential (primary) hypertension

== ENCOUNTER 2018-08-18 02:16 | Emergency (ER) | payer MEDICAID ==
[2018-08-18 02:16] VITALS: BMI 26.6
[2018-08-18] MEDS ORDERED: Albuterol-Ipratrop 3 mg / 0.5 (3 ml) UD INH STA ×2 (04:04→05:32)
[2018-08-18] MEDS ORDERED: Albuterol-Ipratrop 3 mg / 0.5 (3 ml) UD ONE ×2 (04:15→05:39)
--- NOTE | 2018-08-18 06:09 | ED PDOC ---
HPI: General Adult Time Seen by Provider: 08/18/18 02:41 Chief Complaint (Nursing): Cough, Cold, Congestion Chief Complaint (Provider): SOB, asthma History Per: Patient History/Exam Limitations: no limitations Onset/Duration Of Symptoms: Days Have you had recent travel within the past 21 days to any of the following countries: [place], [place], [place] or [place]?: No Current Symptoms Are (Timing): Still Present Additional Complaint(s): 48 yo male with history of COPD and asthma presents for evaluation of wheezing. Pt states he has not used albuterol at home. Denies fever/chills. Past Medical History Reviewed: Historical Data, Nursing Documentation, Vital Signs Vital Signs: Last Vital Signs Temp 97.8 F 08/18/18 02:35 Pulse 74 08/18/18 03:50 Resp 16 08/18/18 02:35 BP 121/81 08/18/18 03:50 Pulse Ox 100 08/18/18 02:35 - Medical History PMH: Asthma, Bronchitis, COPD, HTN, Pneumonia, Seizures Denies: HIV, Chronic Kidney Disease - Surgical History Surgical History: Hernia Repair (ventral) - Family History Family History: States: Unknown Family Hx - Living Arrangements Living Arrangements: With Family - Social History Current smoker - smoking cessation education provided: Yes - Immunization History Hx Tetanus Toxoid Vaccination: No Hx Pneumococcal Vaccination: No - Home Medications Home Medications: Ambulatory Orders Medication Instructions Recorded Albuterol 0.083% [Albuterol 0.083% 2.5 mg INH RQ6 PRN #0 neb 10/08/16 Inhal Ghada (2.5 mg/3 ml) UD] Tiotropium [place] Inhaler 1 inhaler INH DAILY #1 inhaler 10/08/16 [Spiriva Inhalation Handihaler Device] Albuterol HFA [Ventolin HFA 90 1 puff IH BID PRN #1 unit 03/25/17 mcg/actuation (8 g)] Doxycycline Hyclate 100 mg PO BID #14 cap 07/14/17 Doxycycline Monohydrate 100 mg PO BID #14 capsule 07/14/17 Mupirocin 2% Cream [Bactroban 1 applic TOP DAILY #1 tube 07/14/17 Cream] Albuterol HFA [Ventolin HFA 90 2 puff IH Q6 #200 puff 10/30/17 mcg/actuation (8 g)] predniSONE [predniSONE Tab] 20 mg PO BID #8 tab 07/25/17 Fluticasone/Salmeterol 250/50 1 puff IH Q12 #1 inh 08/22/17 [Advair Diskus] predniSONE [predniSONE Tab] 60 mg PO QAM #12 tab 08/22/17 Fluticasone/Salmeterol 100/50 1 puff IH BID #2 dsk 09/03/17 [Advair Diskus 100/50] Albuterol HFA [Ventolin HFA 90 2 puff IH Q6 #200 puff 09/04/17 mcg/actuation (8 g)] Tiotropium [Spiriva] 18 mcg IH DAILY #1 cap 09/04/17 predniSONE [predniSONE Tab] 20 mg PO BID #8 tab 09/04/17 Azithromycin [Zithromax] 250 mg PO DAILY #6 tab 09/05/17 Fluticasone/Salmeterol 250/50 1 puff IH Q12 #28 puff 09/07/17 [Advair Diskus] Albuterol HFA [Ventolin HFA 90 1 - 2 puff IH Q6 PRN #1 inhaler 09/14/17 mcg/actuation (8 g)] predniSONE [predniSONE Tab] 60 mg PO QAM #12 tab 09/14/17 Azithromycin [Zithromax] 250 mg PO DAILY #6 tab 10/05/17 predniSONE [predniSONE Tab] 20 mg PO BID #8 tab 10/05/17 Tiotropium [Spiriva] 18 mcg IH DAILY #1 dev 10/06/17 Budesonide/Formoterol Fumarate 2 puff IH BID #1 aer 10/08/17 [Symbicort] Permethrin 5% [Permethrin] 60 gm TP ONCE PRN #1 tube 10/20/17 Permethrin 1% [Permethrin 60 Ml] 60 ml TP ONCE #1 bottle 12/16/17 Permethrin 5% [Permethrin 5% Cream] 60 gm EXT ONCE #1 tube 02/04/18 Albuterol HFA [Ventolin HFA 90 2 puff IH Q4 PRN #1 inhaler 06/06/18 mcg/actuation (8 g)] Albuterol HFA [Ventolin HFA 90 2 puff IH [id number] PRN #60 puff 06/21/18 mcg/actuation (8 g)] Cetirizine HCl [Zyrtec] 10 mg PO DAILY PRN #10 capsule 06/21/18 Tiotropium [Spiriva] 2 inh IH DAILY #1 each 06/21/18 Cetirizine HCl/Pseudoephedrine 1 each PO BID #30 tab.er.12h 07/03/18 [Zyrtec-D Tablet] predniSONE [predniSONE Tab] 60 mg PO DAILY #9 tab 07/03/18 - Allergies Allergies/Adverse Reactions: Allergies Allergy/AdvReac Type Severity Reaction Status Date / Time No Known Allergies Allergy Verified 07/03/18 03:55 Review of Systems ROS Statement: Except As Marked, All Systems Reviewed And Found Negative Constitutional: Negative for: Fever, Chills Cardiovascular: Negative for: Chest Pain, Palpitations, Orthopnea Respiratory: Positive for: Cough, Wheezing. Negative for: Shortness of Breath, Hemoptysis, SOB with Exertion, Pleuritic Pain Physical Exam - Reviewed Nursing Documentation Reviewed: Yes Vital Signs Reviewed: Yes - Physical Exam Appears: Positive for: Well, Non-toxic, No Acute Distress Head Exam: Positive for: ATRAUMATIC, NORMAL INSPECTION, NORMOCEPHALIC Skin: Positive for: Normal Color, Warm, DRY Eye Exam: Positive for: Normal appearance ENT: Positive for: Normal ENT Inspection Neck: Positive for: Normal, Painless ROM Cardiovascular/Chest: Positive for: Regular Rate, Rhythm Respiratory: Positive for: Wheezing (Diffuse wheezing ). Negative for: Normal Breath Sounds, Accessory Muscle Use Gastrointestinal/Abdominal: Positive for: Normal Exam, Soft Back: Positive for: Normal Inspection Extremity: Positive for: Normal ROM Neurologic/Psych: Positive for: Alert, Oriented - ECG O2 Sat by Pulse Oximetry: 100 Pulse Ox Interpretation: Normal Medical Decision Making Medical Decision Making: Pt reports feeling better on re-evaluation after 2 treatments. Disposition - Clinical Impression Clinical Impression: COPD (chronic obstructive pulmonary disease) - Patient ED Disposition Is Patient to be Admitted: No - Disposition Disposition: Routine/Home Disposition Time: 06:09 Condition: GOOD Instructions: Chronic Obstructive Pulmonary Disease (COPD), Including Emphysema
[2018-08-18 06:37] VITALS: O2SAT 97
[2018-08-18 06:38] VITALS: BP 129/73; PULSE 105; RESP 18; TEMP 98.1
== END 2018-08-18 06:18 | disposition home or self-care (01) ==
LOC: H.ER 02:16
DX: J44.9 Chronic obstructive pulmonary disease, unspecified (principal); I10 Essential (primary) hypertension; F17.200 Nicotine dependence, unspecified, uncomplicated

== ENCOUNTER 2018-08-19 00:47 | Emergency (ER) | payer MEDICAID ==
[2018-08-19 00:47] VITALS: BMI 26.6
[2018-08-19 01:00] VITALS: BP 157/98; PULSE 84; RESP 18; TEMP 98.2
[2018-08-19] MEDS ORDERED: Albuterol-Ipratrop 3 mg / 0.5 (3 ml) UD INH STA (02:07)
[2018-08-19] MEDS ORDERED: Albuterol-Ipratrop 3 mg / 0.5 (3 ml) UD ONE (02:16)
--- NOTE | 2018-08-19 06:03 | ED PDOC ---
HPI: SOB/CHF/COPD Time Seen by Provider: 08/19/18 00:49 Chief Complaint (Nursing): Respiratory Distress Chief Complaint (Provider): Asthma History Per: Patient History/Exam Limitations: no limitations Onset/Duration Of Symptoms: Hrs Current Symptoms Are (Timing): Still Present Additional Complaint(s): 48 yo male, smoker with history of HTN, asthma and COPD presents for evaluation of cough and wheezing today. Pt denies fever/chills. Pt states that he has not taken any medications for his symptoms. no chest pain. No SOB. Past Medical History Reviewed: Historical Data, Nursing Documentation, Vital Signs Vital Signs: Last Vital Signs Temp 98.2 F 08/19/18 00:58 Pulse 84 08/19/18 00:58 Resp 18 08/19/18 02:06 BP 157/98 H 08/19/18 00:58 Pulse Ox 98 08/19/18 00:58 - Medical History PMH: Asthma, Bronchitis, COPD, HTN, Pneumonia, Seizures Denies: HIV, Chronic Kidney Disease - Surgical History Surgical History: Hernia Repair (ventral) - Family History Family History: States: Unknown Family Hx - Immunization History Hx Tetanus Toxoid Vaccination: No Hx Pneumococcal Vaccination: No - Home Medications Home Medications: Ambulatory Orders Medication Instructions Recorded RX: Albuterol 0.083% [Albuterol 2.5 mg INH RQ6 PRN #0 neb 10/08/16 0.083% Inhal Ghada (2.5 mg/3 ml) UD] Tiotropium [place] Inhaler 1 inhaler INH DAILY #1 inhaler 10/08/16 [Spiriva Inhalation Handihaler Device] RX: Albuterol HFA [Ventolin HFA 90 1 puff IH BID PRN #1 unit 03/25/17 mcg/actuation (8 g)] RX: Doxycycline Hyclate 100 mg PO BID #14 cap 07/14/17 RX: Doxycycline Monohydrate 100 mg PO BID #14 capsule 07/14/17 RX: Mupirocin 2% Cream [Bactroban 1 applic TOP DAILY #1 tube 07/14/17 Cream] RX: Albuterol HFA [Ventolin HFA 90 2 puff IH Q6 #200 puff 07/25/17 mcg/actuation (8 g)] RX: predniSONE [predniSONE Tab] 20 mg PO BID #8 tab 07/25/17 Fluticasone/Salmeterol 250/50 1 puff IH Q12 #1 inh 08/22/17 [Advair Diskus] RX: predniSONE [predniSONE Tab] 60 mg PO QAM #12 tab 08/22/17 Fluticasone/Salmeterol 100/50 1 puff IH BID #2 dsk 09/03/17 [Advair Diskus 100/50] RX: Albuterol HFA [Ventolin HFA 90 2 puff IH Q6 #200 puff 09/04/17 mcg/actuation (8 g)] RX: predniSONE [predniSONE Tab] 20 mg PO BID #8 tab 09/04/17 Tiotropium [Spiriva] 18 mcg IH DAILY #1 cap 09/04/17 Azithromycin [Zithromax] 250 mg PO DAILY #6 tab 09/05/17 Fluticasone/Salmeterol 250/50 1 puff IH Q12 #28 puff 09/07/17 [Advair Diskus] RX: Albuterol HFA [Ventolin HFA 90 1 - 2 puff IH Q6 PRN #1 inhaler 09/14/17 mcg/actuation (8 g)] RX: predniSONE [predniSONE Tab] 60 mg PO QAM #12 tab 09/14/17 RX: Azithromycin [Zithromax] 250 mg PO DAILY #6 tab 10/05/17 RX: predniSONE [predniSONE Tab] 20 mg PO BID #8 tab 10/05/17 Tiotropium [Spiriva] 18 mcg IH DAILY #1 dev 10/06/17 Budesonide/Formoterol Fumarate 2 puff IH BID #1 aer 10/08/17 [Symbicort] Permethrin 5% [Permethrin] 60 gm TP ONCE PRN #1 tube 10/20/17 Permethrin 1% [Permethrin 60 Ml] 60 ml TP ONCE #1 bottle 12/16/17 RX: Permethrin 5% [Permethrin 5% 60 gm EXT ONCE #1 tube 02/04/18 Cream] Albuterol HFA [Ventolin HFA 90 2 puff IH Q4 PRN #1 inhaler 06/06/18 mcg/actuation (8 g)] Albuterol HFA [Ventolin HFA 90 2 puff IH [id number] PRN #60 puff 06/21/18 mcg/actuation (8 g)] Cetirizine HCl [Zyrtec] 10 mg PO DAILY PRN #10 capsule 06/21/18 Tiotropium [Spiriva] 2 inh IH DAILY #1 each 06/21/18 Cetirizine HCl/Pseudoephedrine 1 each PO BID #30 tab.er.12h 07/03/18 [Zyrtec-D Tablet] RX: predniSONE [predniSONE Tab] 60 mg PO DAILY #9 tab 07/03/18 - Allergies Allergies/Adverse Reactions: Allergies Allergy/AdvReac Type Severity Reaction Status Date / Time No Known Allergies Allergy Verified 07/03/18 03:55 Review of Systems ROS Statement: Except As Marked, All Systems Reviewed And Found Negative Constitutional: Negative for: Fever, Chills Gastrointestinal: Negative for: Nausea, Vomiting Genitourinary Male: Negative for: Dysuria, Frequency Musculoskeletal: Negative for: Neck Pain, Shoulder Pain Neurological: Negative for: Weakness, Numbness Physical Exam - Reviewed Nursing Documentation Reviewed: Yes Vital Signs Reviewed: Yes - Physical Exam Appears: Positive for: Well, Non-toxic, No Acute Distress Head Exam: Positive for: ATRAUMATIC, NORMAL INSPECTION, NORMOCEPHALIC Skin: Positive for: Normal Color, Warm, DRY Eye Exam: Positive for: Normal appearance ENT: Positive for: Normal ENT Inspection Neck: Positive for: Normal, Painless ROM Cardiovascular/Chest: Positive for: Regular Rate, Rhythm Respiratory: Positive for: Wheezing (Diffuse ). Negative for: Accessory Muscle Use, Respiratory Distress Gastrointestinal/Abdominal: Positive for: Normal Exam, Soft Back: Positive for: Normal Inspection Extremity: Positive for: Normal ROM Neurologic/Psych: Positive for: Alert, Oriented - ECG O2 Sat by Pulse Oximetry: 98 Medical Decision Making Medical Decision Making: Improved on re-evaluation after duoneb. Disposition - Clinical Impression Clinical Impression: Asthma - Patient ED Disposition Is Patient to be Admitted: No - Disposition Disposition: Routine/Home Disposition Time: 06:03 Condition: STABLE Forms: [employer] (Slovak)
[2018-08-19 21:25] VITALS: O2SAT 98
== END 2018-08-19 06:00 | disposition home or self-care (01) ==
LOC: H.ER 00:47
DX: J45.909 Unspecified asthma, uncomplicated (principal); I10 Essential (primary) hypertension

== ENCOUNTER 2018-08-23 23:39 | Emergency (ER) | payer MEDICAID ==
[2018-08-23 23:39] VITALS: BMI 26.6
[2018-08-23 23:43] VITALS: RESP 18
--- NOTE | 2018-08-24 00:34 | ED PDOC ---
HPI: Psych/Substance Abuse Time Seen by Provider: 08/23/18 23:46 Chief Complaint (Nursing): Alcohol Ingestion Chief Complaint (Provider): Alcohol Ingestion ED Caveat: Intoxicated History Per: EMS History/Exam Limitations: intoxication Onset/Duration Of Symptoms: Mins (prior to arrival) Current Symptoms Are (Timing): Still Present Additional History Per: Prior Records Additional Complaint(s): 48 year old homeless male well known to the ED for multiple intoxicated visits presents today via EMS for alcohol ingestion and public intoxication prior to arrival. Secondary to patient's intoxication, history and ROS are limited. Additional information pulled from previous records. PMD: Sylwia Montoya Past Medical History Reviewed: Historical Data, Nursing Documentation, Vital Signs Vital Signs: Last Vital Signs Temp 97.8 F 08/23/18 23:40 Pulse 94 H 08/23/18 23:40 Resp 18 08/23/18 23:40 BP 137/78 08/23/18 23:40 Pulse Ox 96 08/23/18 23:40 - Medical History PMH: Asthma, Bronchitis, COPD, HTN, Pneumonia, Seizures Denies: HIV, Chronic Kidney Disease - Surgical History Surgical History: Hernia Repair (ventral) - Family History Family History: States: Unknown Family Hx - Living Arrangements Living Arrangements: Other (homeless) - Social History Alcohol: Other (hx of abuse) - Immunization History Hx Tetanus Toxoid Vaccination: No Hx Pneumococcal Vaccination: No - Home Medications Home Medications: Ambulatory Orders Medication Instructions Recorded Albuterol 0.083% [Albuterol 0.083% 2.5 mg INH RQ6 PRN #0 neb 10/08/16 Inhal Ghada (2.5 mg/3 ml) UD] Tiotropium [place] Inhaler 1 inhaler INH DAILY #1 inhaler 10/08/16 [Spiriva Inhalation Handihaler Device] Albuterol HFA [Ventolin HFA 90 1 puff IH BID PRN #1 unit 03/25/17 mcg/actuation (8 g)] Doxycycline Hyclate 100 mg PO BID #14 cap 07/14/17 Doxycycline Monohydrate 100 mg PO BID #14 capsule 07/14/17 Mupirocin 2% Cream [Bactroban 1 applic TOP DAILY #1 tube 07/14/17 Cream] Albuterol HFA [Ventolin HFA 90 2 puff IH Q6 #200 puff 07/25/17 mcg/actuation (8 g)] predniSONE [predniSONE Tab] 20 mg PO BID #8 tab 07/25/17 Fluticasone/Salmeterol 250/50 1 puff IH Q12 #1 inh 08/22/17 [Advair Diskus] predniSONE [predniSONE Tab] 60 mg PO QAM #12 tab 08/22/17 Fluticasone/Salmeterol 100/50 1 puff IH BID #2 dsk 09/03/17 [Advair Diskus 100/50] Albuterol HFA [Ventolin HFA 90 2 puff IH Q6 #200 puff 09/04/17 mcg/actuation (8 g)] Tiotropium [Spiriva] 18 mcg IH DAILY #1 cap 09/04/17 predniSONE [predniSONE Tab] 20 mg PO BID #8 tab 09/04/17 Azithromycin [Zithromax] 250 mg PO DAILY #6 tab 09/05/17 Fluticasone/Salmeterol 250/50 1 puff IH Q12 #28 puff 09/07/17 [Advair Diskus] Albuterol HFA [Ventolin HFA 90 1 - 2 puff IH Q6 PRN #1 inhaler 09/14/17 mcg/actuation (8 g)] predniSONE [predniSONE Tab] 60 mg PO QAM #12 tab 09/14/17 Azithromycin [Zithromax] 250 mg PO DAILY #6 tab 10/05/17 predniSONE [predniSONE Tab] 20 mg PO BID #8 tab 10/05/17 Tiotropium [Spiriva] 18 mcg IH DAILY #1 dev 10/06/17 Budesonide/Formoterol Fumarate 2 puff IH BID #1 aer 10/08/17 [Symbicort] Permethrin 5% [Permethrin] 60 gm TP ONCE PRN #1 tube 10/20/17 Permethrin 1% [Permethrin 60 Ml] 60 ml TP ONCE #1 bottle 12/16/17 Permethrin 5% [Permethrin 5% Cream] 60 gm EXT ONCE #1 tube 02/04/18 Albuterol HFA [Ventolin HFA 90 2 puff IH Q4 PRN #1 inhaler 06/06/18 mcg/actuation (8 g)] Albuterol HFA [Ventolin HFA 90 2 puff IH [id number] PRN #60 puff 06/21/18 mcg/actuation (8 g)] Cetirizine HCl [Zyrtec] 10 mg PO DAILY PRN #10 capsule 06/21/18 Tiotropium [Spiriva] 2 inh IH DAILY #1 each 06/21/18 Cetirizine HCl/Pseudoephedrine 1 each PO BID #30 tab.er.12h 07/03/18 [Zyrtec-D Tablet] predniSONE [predniSONE Tab] 60 mg PO DAILY #9 tab 07/03/18 - Allergies Allergies/Adverse Reactions: Allergies Allergy/AdvReac Type Severity Reaction Status Date / Time No Known Allergies Allergy Verified 07/03/18 03:55 Review of Systems Review Of Systems: ROS cannot be obtained secondary to pt's inabilty to answer questions. Physical Exam - Reviewed Nursing Documentation Reviewed: Yes Vital Signs Reviewed: Yes - Physical Exam Appears: Positive for: No Acute Distress (but intoxicated appearing with alcohol on breath) Head Exam: Positive for: ATRAUMATIC, NORMOCEPHALIC Skin: Positive for: Normal Color. Negative for: Rash Eye Exam: Positive for: Normal appearance Cardiovascular/Chest: Positive for: Regular Rate, Rhythm Respiratory: Positive for: Normal Breath Sounds. Negative for: Respiratory Distress Gastrointestinal/Abdominal: Positive for: Normal Exam, Soft. Negative for: Tenderness Extremity: Positive for: Normal ROM Neurologic/Psych: Positive for: Alert (and awake), Gait (unsteady), Other (slurred speech) - ECG O2 Sat by Pulse Oximetry: 96 (RA) Pulse Ox Interpretation: Normal Medical Decision Making Medical Decision Making: Time: 12 Initial Impression: 48 year old male with alcohol intoxication Initial Plan: --Alcohol serum --Accucheck 0615 Patient clinically sober at this time and stable for discharge with diagnosis of alcohol intoxication. Scribe Attestation: Documented by Cinthya Corrigan, acting as a scribe for Tomasz Hill MD. Provider Scribe Attestation: All medical record entries made by the Scribe were at my direction and personally dictated by me. I have reviewed the chart and agree that the record accurately reflects my personal performance of the history, physical exam, medical decision making, and the department course for this patient. I have also personally directed, reviewed, and agree with the discharge instructions and disposition. Disposition - Clinical Impression Clinical Impression: Alcohol intoxication - Patient ED Disposition Is Patient to be Admitted: No - Disposition Disposition: Routine/Home Disposition Time: 06:15 Condition: STABLE Instructions: Alcohol Abuse and Alcoholism (DC) Forms: [employer] (Angolan)
[2018-08-24 05:33] VITALS: BP 122/78; PULSE 86; TEMP 98.2
[2018-08-24 06:26] VITALS: O2SAT 96
== END 2018-08-24 05:32 | disposition home or self-care (01) ==
LOC: H.ER 23:39
DX: F10.129 Alcohol abuse with intoxication, unspecified (principal); I10 Essential (primary) hypertension; Z59.0 Homelessness

== ENCOUNTER 2018-08-26 00:51 | Emergency (ER) | payer MEDICAID ==
[2018-08-26 00:51] VITALS: BMI 26.6
--- NOTE | 2018-08-26 01:31 | ED PDOC ---
HPI: Psych/Substance Abuse Time Seen by Provider: 08/26/18 01:14 Chief Complaint (Nursing): Alcohol Ingestion Chief Complaint (Provider): Alcohol Ingestion ED Caveat: Intoxicated History Per: Patient History/Exam Limitations: intoxication Additional Complaint(s): 48 years old alcoholic male with history of COPD presents for evaluation of alcohol intoxication. Patient is known for frequent visits to ER for alcohol intoxication. He admits drinking today and denies taking drugs, having injuries, suicidal or homicidal ideation. PMD: non provided Past Medical History Reviewed: Historical Data, Nursing Documentation, Vital Signs Vital Signs: Last Vital Signs Temp 96.7 F L 08/26/18 00:57 Pulse 72 08/26/18 00:57 Resp 18 08/26/18 00:57 BP 136/90 08/26/18 00:57 Pulse Ox 100 08/26/18 00:57 - Medical History PMH: Asthma, Bronchitis, COPD, HTN, Pneumonia, Seizures Denies: HIV, Chronic Kidney Disease - Surgical History Surgical History: Hernia Repair (ventral) - Family History Family History: States: Unknown Family Hx - Social History Alcohol: Social Drugs: Denies - Immunization History Hx Tetanus Toxoid Vaccination: No Hx Pneumococcal Vaccination: No - Home Medications Home Medications: Ambulatory Orders Medication Instructions Recorded Albuterol 0.083% [Albuterol 0.083% 2.5 mg INH RQ6 PRN #0 neb 10/08/16 Inhal Ghada (2.5 mg/3 ml) UD] Tiotropium [place] Inhaler 1 inhaler INH DAILY #1 inhaler 10/08/16 [Spiriva Inhalation Handihaler Device] Albuterol HFA [Ventolin HFA 90 1 puff IH BID PRN #1 unit 03/25/17 mcg/actuation (8 g)] Doxycycline Hyclate 100 mg PO BID #14 cap 07/14/17 Doxycycline Monohydrate 100 mg PO BID #14 capsule 07/14/17 Mupirocin 2% Cream [Bactroban 1 applic TOP DAILY #1 tube 07/14/17 Cream] Albuterol HFA [Ventolin HFA 90 2 puff IH Q6 #200 puff 07/25/17 mcg/actuation (8 g)] predniSONE [predniSONE Tab] 20 mg PO BID #8 tab 07/25/17 Fluticasone/Salmeterol 250/50 1 puff IH Q12 #1 inh 08/22/17 [Advair Diskus] predniSONE [predniSONE Tab] 60 mg PO QAM #12 tab 08/22/17 Fluticasone/Salmeterol 100/50 1 puff IH BID #2 dsk 09/03/17 [Advair Diskus 100/50] Albuterol HFA [Ventolin HFA 90 2 puff IH Q6 #200 puff 09/04/17 mcg/actuation (8 g)] Tiotropium [Spiriva] 18 mcg IH DAILY #1 cap 09/04/17 predniSONE [predniSONE Tab] 20 mg PO BID #8 tab 09/04/17 Azithromycin [Zithromax] 250 mg PO DAILY #6 tab 09/05/17 Fluticasone/Salmeterol 250/50 1 puff IH Q12 #28 puff 09/07/17 [Advair Diskus] Albuterol HFA [Ventolin HFA 90 1 - 2 puff IH Q6 PRN #1 inhaler 09/14/17 mcg/actuation (8 g)] predniSONE [predniSONE Tab] 60 mg PO QAM #12 tab 09/14/17 Azithromycin [Zithromax] 250 mg PO DAILY #6 tab 10/05/17 predniSONE [predniSONE Tab] 20 mg PO BID #8 tab 10/05/17 Tiotropium [Spiriva] 18 mcg IH DAILY #1 dev 10/06/17 Budesonide/Formoterol Fumarate 2 puff IH BID #1 aer 10/08/17 [Symbicort] Permethrin 5% [Permethrin] 60 gm TP ONCE PRN #1 tube 10/20/17 Permethrin 1% [Permethrin 60 Ml] 60 ml TP ONCE #1 bottle 12/16/17 Permethrin 5% [Permethrin 5% Cream] 60 gm EXT ONCE #1 tube 02/04/18 Albuterol HFA [Ventolin HFA 90 2 puff IH Q4 PRN #1 inhaler 06/06/18 mcg/actuation (8 g)] Albuterol HFA [Ventolin HFA 90 2 puff IH [id number] PRN #60 puff 06/21/18 mcg/actuation (8 g)] Cetirizine HCl [Zyrtec] 10 mg PO DAILY PRN #10 capsule 06/21/18 Tiotropium [Spiriva] 2 inh IH DAILY #1 each 06/21/18 Cetirizine HCl/Pseudoephedrine 1 each PO BID #30 tab.er.12h 07/03/18 [Zyrtec-D Tablet] predniSONE [predniSONE Tab] 60 mg PO DAILY #9 tab 07/03/18 - Allergies Allergies/Adverse Reactions: Allergies Allergy/AdvReac Type Severity Reaction Status Date / Time No Known Allergies Allergy Verified 08/26/18 00:56 Review of Systems ROS Statement: Except As Marked, All Systems Reviewed And Found Negative Psych: Positive for: Other (Alcohol intoxication). Negative for: Suicidal ideation Physical Exam - Reviewed Nursing Documentation Reviewed: Yes Vital Signs Reviewed: Yes - Physical Exam Appears: Positive for: No Acute Distress. Negative for: Non-toxic (intoxicated appearing) Head Exam: Positive for: ATRAUMATIC, NORMOCEPHALIC Skin: Positive for: Normal Color, Warm, Dry Eye Exam: Positive for: Normal appearance, EOMI, PERRL Neck: Positive for: Normal, Painless ROM, Supple Cardiovascular/Chest: Positive for: Regular Rate, Rhythm. Negative for: Murmur Respiratory: Positive for: Normal Breath Sounds. Negative for: Wheezing Gastrointestinal/Abdominal: Positive for: Normal Exam, Soft. Negative for: Tenderness Back: Positive for: Normal Inspection. Negative for: L CVA Tenderness, R CVA Tenderness Extremity: Positive for: Normal ROM. Negative for: Tenderness, Deformity Neurologic/Psych: Positive for: Alert, Oriented (x3) - ECG O2 Sat by Pulse Oximetry: 100 (RA) Pulse Ox Interpretation: Normal Medical Decision Making Medical Decision Making: Time: 129 A/P: 48 years old alcoholic male with history of COPD presents with alcohol intoxication --No signs of trauma --Observe till sober 545 --Patient is awake, alert, steady gait --Will d/ chome ----- Scribe Attestation: Documented by Claudia Carbajal, acting as a scribe for Bassem Moore MD. Provider Scribe Attestation: All medical record entries made by the Scribe were at my direction and personally dictated by me. I have reviewed the chart and agree that the record accurately reflects my personal performance of the history, physical exam, medical decision making, and the department course for this patient. I have also personally directed, reviewed, and agree with the discharge instructions and disposition. Disposition - Clinical Impression Clinical Impression: Alcohol intoxication - Patient ED Disposition Is Patient to be Admitted: No - Disposition Referrals: Keena Reyes MD [Family Provider] - Alcoholics Anonymous [Outside] Disposition: Routine/Home Disposition Time: 05:44 Condition: IMPROVED Instructions: Alcohol Abuse and Alcoholism (DC) Forms: [employer] (Swedish)
[2018-08-26 06:21] VITALS: BP 137/69; PULSE 89; RESP 16; TEMP 98.4; O2SAT 98
== END 2018-08-26 06:20 | disposition home or self-care (01) ==
LOC: H.ER 00:51
DX: F10.129 Alcohol abuse with intoxication, unspecified (principal); I10 Essential (primary) hypertension; J44.9 Chronic obstructive pulmonary disease, unspecified

== ENCOUNTER 2018-08-27 01:48 | Emergency (ER) | payer MEDICAID ==
[2018-08-27 01:48] VITALS: BMI 26.6
[2018-08-27 02:11] VITALS: TEMP 97.6
[2018-08-27] MEDS ORDERED: Albuterol-Ipratrop 3 mg / 0.5 (3 ml) UD INH STA (02:27)
--- NOTE | 2018-08-27 02:42 | ED PDOC ---
HPI: SOB/CHF/COPD Time Seen by Provider: 08/27/18 01:53 Chief Complaint (Nursing): Respiratory Distress Chief Complaint (Provider): cough History Per: Patient History/Exam Limitations: no limitations Onset/Duration Of Symptoms: Days (1x day) Current Symptoms Are (Timing): Still Present Severity: Moderate Additional Complaint(s): 48 year old homeless male, well known to the ED, with a past medical history of chronic obstructive pulmonary disease and alcoholism presents to the ED with complaints of a cough and shortness of breath for 1x day. Patient denies having fevers. Patient is requesting a prescription for spiriva and decongestant. PMD: Sylwia Montoya MD Past Medical History Reviewed: Historical Data, Nursing Documentation, Vital Signs Vital Signs: Last Vital Signs Temp 97.6 F 08/27/18 02:08 Pulse 101 H 08/27/18 02:08 Resp 18 08/27/18 02:08 BP 146/88 08/27/18 02:08 Pulse Ox 94 L 08/27/18 02:08 - Medical History PMH: Asthma, Bronchitis, COPD, HTN, Pneumonia, Seizures Denies: HIV, Chronic Kidney Disease - Surgical History Surgical History: Hernia Repair (ventral) - Family History Family History: States: No Known Family Hx - Living Arrangements Living Arrangements: Other (homeless) - Social History Current smoker - smoking cessation education provided: Yes - Immunization History Hx Tetanus Toxoid Vaccination: No Hx Pneumococcal Vaccination: No - Home Medications Home Medications: Ambulatory Orders Medication Instructions Recorded Albuterol 0.083% [Albuterol 0.083% 2.5 mg INH RQ6 PRN #0 neb 10/08/16 Inhal Ghada (2.5 mg/3 ml) UD] Tiotropium [place] Inhaler 1 inhaler INH DAILY #1 inhaler 10/08/16 [Spiriva Inhalation Handihaler Device] Albuterol HFA [Ventolin HFA 90 1 puff IH BID PRN #1 unit 03/25/17 mcg/actuation (8 g)] Doxycycline Hyclate 100 mg PO BID #14 cap 07/14/17 Doxycycline Monohydrate 100 mg PO BID #14 capsule 07/14/17 Mupirocin 2% Cream [Bactroban 1 applic TOP DAILY #1 tube 07/14/17 Cream] Albuterol HFA [Ventolin HFA 90 2 puff IH Q6 #200 puff 07/25/17 mcg/actuation (8 g)] predniSONE [predniSONE Tab] 20 mg PO BID #8 tab 07/25/17 Fluticasone/Salmeterol 250/50 1 puff IH Q12 #1 inh 08/22/17 [Advair Diskus] predniSONE [predniSONE Tab] 60 mg PO QAM #12 tab 08/22/17 Fluticasone/Salmeterol 100/50 1 puff IH BID #2 dsk 09/03/17 [Advair Diskus 100/50] Albuterol HFA [Ventolin HFA 90 2 puff IH Q6 #200 puff 09/04/17 mcg/actuation (8 g)] Tiotropium [Spiriva] 18 mcg IH DAILY #1 cap 09/04/17 predniSONE [predniSONE Tab] 20 mg PO BID #8 tab 09/04/17 Azithromycin [Zithromax] 250 mg PO DAILY #6 tab 09/05/17 Fluticasone/Salmeterol 250/50 1 puff IH Q12 #28 puff 09/07/17 [Advair Diskus] Albuterol HFA [Ventolin HFA 90 1 - 2 puff IH Q6 PRN #1 inhaler 09/14/17 mcg/actuation (8 g)] predniSONE [predniSONE Tab] 60 mg PO QAM #12 tab 09/14/17 Azithromycin [Zithromax] 250 mg PO DAILY #6 tab 10/05/17 predniSONE [predniSONE Tab] 20 mg PO BID #8 tab 10/05/17 Tiotropium [Spiriva] 18 mcg IH DAILY #1 dev 10/06/17 Budesonide/Formoterol Fumarate 2 puff IH BID #1 aer 10/08/17 [Symbicort] Permethrin 5% [Permethrin] 60 gm TP ONCE PRN #1 tube 10/20/17 Permethrin 1% [Permethrin 60 Ml] 60 ml TP ONCE #1 bottle 12/16/17 Permethrin 5% [Permethrin 5% Cream] 60 gm EXT ONCE #1 tube 02/04/18 Albuterol HFA [Ventolin HFA 90 2 puff IH Q4 PRN #1 inhaler 06/06/18 mcg/actuation (8 g)] Albuterol HFA [Ventolin HFA 90 2 puff IH [id number] PRN #60 puff 06/21/18 mcg/actuation (8 g)] Cetirizine HCl [Zyrtec] 10 mg PO DAILY PRN #10 capsule 06/21/18 Tiotropium [Spiriva] 2 inh IH DAILY #1 each 06/21/18 Cetirizine HCl/Pseudoephedrine 1 each PO BID #30 tab.er.12h 07/03/18 [Zyrtec-D Tablet] predniSONE [predniSONE Tab] 60 mg PO DAILY #9 tab 07/03/18 Guaifenesin [Mucinex] 600 mg PO Q12 PRN #10 tab.er.12h 08/27/18 Tiotropium [place] Inhaler 1 inhaler INH QAM #1 inhaler 08/27/18 [Spiriva Inhalation Handihaler Device] - Allergies Allergies/Adverse Reactions: Allergies Allergy/AdvReac Type Severity Reaction Status Date / Time No Known Allergies Allergy Verified 08/27/18 02:07 Review of Systems ROS Statement: Except As Marked, All Systems Reviewed And Found Negative Constitutional: Negative for: Fever Respiratory: Positive for: Cough, Shortness of Breath Physical Exam - Reviewed Nursing Documentation Reviewed: Yes Vital Signs Reviewed: Yes - Physical Exam Appears: Positive for: Well, Non-toxic, No Acute Distress Head Exam: Positive for: ATRAUMATIC, NORMOCEPHALIC Skin: Positive for: Normal Color Cardiovascular/Chest: Positive for: Regular Rate, Rhythm Respiratory: Positive for: Wheezing (trace expiratory wheeze). Negative for: Respiratory Distress Neurologic/Psych: Positive for: Alert, Oriented (3x) - ECG O2 Sat by Pulse Oximetry: 94 (RA) Pulse Ox Interpretation: Abnormal Medical Decision Making Medical Decision Makin:53 Initial impression: 48 year old male with mild COPD exacerbation. Initial plan: * EKG * duoneb 3 ml INH * peak flow pre post treatment 4:18 Patient is stable for discharge. Diagnosis is COPD. Return precautions provided. Scribe Attestation: Documented byJusta Mcfadden, acting as a scribe for Tomasz Hill MD. Provider Scribe Attestation: All medical record entries made by the Scribe were at my direction and personally dictated by me. I have reviewed the chart and agree that the record accurately reflects my personal performance of the history, physical exam, medical decision making, and the department course for this patient. I have also personally directed, reviewed, and agree with the discharge instructions and disposition. Disposition - Clinical Impression Clinical Impression: COPD (chronic obstructive pulmonary disease) - Disposition Disposition Time: 04:18 Condition: STABLE Prescriptions: Guaifenesin [Mucinex] 600 mg PO Q12 PRN #10 tab.er.12h PRN Reason: congestion/cough Tiotropium [place] Inhaler [Spiriva Inhalation Handihaler Device] 1 inhaler INH QAM #1 inhaler Instructions: Chronic Obstructive Pulmonary Disease (COPD), Including Emphysema Forms: [employer] (French)
[2018-08-27 05:13] VITALS: BP 130/88; PULSE 90; RESP 24; O2SAT 95
--- NOTE | 2018-08-27 22:14 | CARD ---
APPROVED REPORT Date of service: 08/27/2018 EKG Measurement Heart [id number] <Conclusion> Normal sinus rhythm Moderate voltage criteria for LVH, may be normal variant Borderline ECG
== END 2018-08-27 05:17 | disposition home or self-care (01) ==
LOC: H.ER 01:48
DX: J44.9 Chronic obstructive pulmonary disease, unspecified (principal)

== ENCOUNTER 2018-08-30 22:17 | Emergency (ER) | payer MEDICAID ==
[2018-08-30 22:17] VITALS: BMI 26.6
[2018-08-30 22:20] VITALS: RESP 16
--- NOTE | 2018-08-31 04:19 | ED PDOC ---
HPI: Influenza Time Seen by Provider: 08/30/18 23:00 Chief Complaint: Cough, Cold, Congestion History Per: Patient Exam Limitations: no limitations Have you had recent travel within the past 21 days to any of: No Onset/Duration Of Symptoms: Days (2) Symptoms include: cough Sick Contacts (Context): None Past Medical History Reviewed: Historical Data, Nursing Documentation, Vital Signs Vital Signs: Last Vital Signs Temp 97.1 F L 08/30/18 22:18 Pulse 102 H 08/30/18 22:18 Resp 16 08/30/18 22:18 BP 137/90 08/30/18 22:18 Pulse Ox 97 08/30/18 22:18 - Medical History PMH: Asthma, Bronchitis, COPD, HTN, Pneumonia, Seizures Denies: HIV, Chronic Kidney Disease - Surgical History Surgical History: Hernia Repair (ventral) - Family History Family History: States: Unknown Family Hx - Immunization History Hx Tetanus Toxoid Vaccination: No Hx Pneumococcal Vaccination: No - Home Medications Home Medications: Ambulatory Orders Medication Instructions Recorded Albuterol 0.083% [Albuterol 0.083% 2.5 mg INH RQ6 PRN #0 neb 10/08/16 Inhal Ghada (2.5 mg/3 ml) UD] Tiotropium [place] Inhaler 1 inhaler INH DAILY #1 inhaler 10/08/16 [Spiriva Inhalation Handihaler Device] Albuterol HFA [Ventolin HFA 90 1 puff IH BID PRN #1 unit 03/25/17 mcg/actuation (8 g)] Doxycycline Hyclate 100 mg PO BID #14 cap 07/14/17 Doxycycline Monohydrate 100 mg PO BID #14 capsule 07/14/17 Mupirocin 2% Cream [Bactroban 1 applic TOP DAILY #1 tube 07/14/17 Cream] Albuterol HFA [Ventolin HFA 90 2 puff IH Q6 #200 puff 07/25/17 mcg/actuation (8 g)] predniSONE [predniSONE Tab] 20 mg PO BID #8 tab 07/25/17 Fluticasone/Salmeterol 250/50 1 puff IH Q12 #1 inh 08/22/17 [Advair Diskus] predniSONE [predniSONE Tab] 60 mg PO QAM #12 tab 08/22/17 Fluticasone/Salmeterol 100/50 1 puff IH BID #2 dsk 09/03/17 [Advair Diskus 100/50] Albuterol HFA [Ventolin HFA 90 2 puff IH Q6 #200 puff 09/04/17 mcg/actuation (8 g)] Tiotropium [Spiriva] 18 mcg IH DAILY #1 cap 09/04/17 predniSONE [predniSONE Tab] 20 mg PO BID #8 tab 09/04/17 Azithromycin [Zithromax] 250 mg PO DAILY #6 tab 09/05/17 Fluticasone/Salmeterol 250/50 1 puff IH Q12 #28 puff 09/07/17 [Advair Diskus] Albuterol HFA [Ventolin HFA 90 1 - 2 puff IH Q6 PRN #1 inhaler 09/14/17 mcg/actuation (8 g)] predniSONE [predniSONE Tab] 60 mg PO QAM #12 tab 09/14/17 Azithromycin [Zithromax] 250 mg PO DAILY #6 tab 10/05/17 predniSONE [predniSONE Tab] 20 mg PO BID #8 tab 10/05/17 Tiotropium [Spiriva] 18 mcg IH DAILY #1 dev 10/06/17 Budesonide/Formoterol Fumarate 2 puff IH BID #1 aer 10/08/17 [Symbicort] Permethrin 5% [Permethrin] 60 gm TP ONCE PRN #1 tube 10/20/17 Permethrin 1% [Permethrin 60 Ml] 60 ml TP ONCE #1 bottle 12/16/17 Permethrin 5% [Permethrin 5% Cream] 60 gm EXT ONCE #1 tube 02/04/18 Albuterol HFA [Ventolin HFA 90 2 puff IH Q4 PRN #1 inhaler 06/06/18 mcg/actuation (8 g)] Albuterol HFA [Ventolin HFA 90 2 puff IH [id number] PRN #60 puff 06/21/18 mcg/actuation (8 g)] Cetirizine HCl [Zyrtec] 10 mg PO DAILY PRN #10 capsule 06/21/18 Tiotropium [Spiriva] 2 inh IH DAILY #1 each 06/21/18 Cetirizine HCl/Pseudoephedrine 1 each PO BID #30 tab.er.12h 07/03/18 [Zyrtec-D Tablet] predniSONE [predniSONE Tab] 60 mg PO DAILY #9 tab 07/03/18 Guaifenesin [Mucinex] 600 mg PO Q12 PRN #10 tab.er.12h 08/27/18 Tiotropium [place] Inhaler 1 inhaler INH QAM #1 inhaler 08/27/18 [Spiriva Inhalation Handihaler Device] - Allergies Allergies/Adverse Reactions: Allergies Allergy/AdvReac Type Severity Reaction Status Date / Time No Known Allergies Allergy Verified 08/30/18 22:18 Review of Systems ROS Statement: Except As Marked, All Systems Reviewed And Found Negative Physical Exam - Reviewed Nursing Documentation Reviewed: Yes Vital Signs Reviewed: Yes - Physical Exam Appears: Positive for: Non-toxic, No Acute Distress Head Exam: Positive for: ATRAUMATIC Skin: Positive for: Normal Color Eye Exam: Positive for: EOMI Cardiovascular/Chest: Positive for: Regular Rate, Rhythm Respiratory: Negative for: Wheezing, Respiratory Distress Neurologic/Psych: Positive for: Alert, Oriented Medical Decision Making Medical Decision Making: Impression URI Plan pseudoephedrine G+codeine - ECG O2 Sat by Pulse Oximetry: 97 Disposition - Clinical Impression Clinical Impression: URI (upper respiratory infection), Bronchitis - Patient ED Disposition Is Patient to be Admitted: No Doctor Will See Patient In The: Office Counseled Patient/Family Regarding: Studies Performed, Diagnosis, Need For Followup - Disposition Referrals: [facility] [Outside] Disposition: Routine/Home Disposition Time: 05:54 Condition: GOOD Additional Instructions: [employer]OTHERS, thank you for letting us take care of you today. Your provider was Angel Coreas MD and you were treated for COUGH. The emergency medical care you received today was directed at your acute symptoms. If you were prescribed any medication, please fill it and take as directed. It may take several days for your symptoms to resolve. Return to the Emergency Department if your symptoms worsen, do not improve, or if you have any other problems. Please contact your doctor or call one of the physicians/clinics you have been referred to that are listed on the Patient Visit Information form that is included in your discharge packet. Bring any paperwork you were given at discharge with you along with any medications you are taking to your follow up visit. Our treatment cannot replace ongoing medical care by a primary care provider outside of the emergency department. Thank you for allowing the [facility] team to be part of your care today. If you had an X-Ray or CT scan: A Radiologist will review the ED reading if any change in treatment is needed we will contact you. If you had a blood, urine, or wound culture: It will take several days for the results, if any change in treatment is needed we will contact you. If you had an STI test: It will take 48 hours for the results. Please call after 1 week if you have not heard back. Instructions: Acute Bronchitis
[2018-08-31] MEDS: guaiFENesin-DM 600-30 mg ER Tab PO STA (04:58)
[2018-08-31 06:18] VITALS: BP 120/77; PULSE 101; TEMP 97.9; O2SAT 95
== END 2018-08-31 06:33 | disposition home or self-care (01) ==
LOC: H.ER 22:17
DX: J06.9 Acute upper respiratory infection, unspecified (principal); J40 Bronchitis, not specified as acute or chronic

== ENCOUNTER 2018-08-31 15:19 | Emergency (ER) | payer MEDICAID ==
[2018-08-31 15:20] VITALS: BMI 26.6
[2018-08-31 15:23] VITALS: BP 128/98; PULSE 81; RESP 16; TEMP 97; O2SAT 99
--- NOTE | 2018-08-31 15:32 | ED PDOC ---
HPI: Psych/Substance Abuse Time Seen by Provider: 08/31/18 15:30 Chief Complaint (Nursing): Alcohol Ingestion Chief Complaint (Provider): etoh History Per: Patient, EMS Additional Complaint(s): 48 y/o intoxicated male presents to ED acutely intoxicated. Patient states he drinks daily. He was found asleep in the street. Upon arrival patient offers no acute complaints. He admits to drinking today but denies drug use. Past Medical History Reviewed: Historical Data, Nursing Documentation, Vital Signs Vital Signs: Last Vital Signs Temp 97.0 F L 08/31/18 15:22 Pulse 81 08/31/18 15:22 Resp 16 08/31/18 15:22 BP 128/98 H 08/31/18 15:22 Pulse Ox 99 08/31/18 15:22 - Medical History PMH: Asthma, Bronchitis, COPD, HTN, Pneumonia, Seizures - Surgical History Surgical History: Hernia Repair (ventral) - Family History Family History: States: No Known Family Hx - Living Arrangements Living Arrangements: Other (non-domiciled) - Social History Current smoker - smoking cessation education provided: Yes Alcohol: > 2 Drinks/Day Drugs: Denies - Home Medications Home Medications: Ambulatory Orders Medication Instructions Recorded Albuterol 0.083% [Albuterol 0.083% 2.5 mg INH RQ6 PRN #0 neb 10/08/16 Inhal Ghada (2.5 mg/3 ml) UD] Tiotropium [place] Inhaler 1 inhaler INH DAILY #1 inhaler 10/08/16 [Spiriva Inhalation Handihaler Device] Albuterol HFA [Ventolin HFA 90 1 puff IH BID PRN #1 unit 03/25/17 mcg/actuation (8 g)] Doxycycline Hyclate 100 mg PO BID #14 cap 07/14/17 Doxycycline Monohydrate 100 mg PO BID #14 capsule 07/14/17 Mupirocin 2% Cream [Bactroban 1 applic TOP DAILY #1 tube 07/14/17 Cream] Albuterol HFA [Ventolin HFA 90 2 puff IH Q6 #200 puff 07/25/17 mcg/actuation (8 g)] predniSONE [predniSONE Tab] 20 mg PO BID #8 tab 07/25/17 Fluticasone/Salmeterol 250/50 1 puff IH Q12 #1 inh 08/22/17 [Advair Diskus] predniSONE [predniSONE Tab] 60 mg PO QAM #12 tab 08/22/17 Fluticasone/Salmeterol 100/50 1 puff IH BID #2 dsk 09/03/17 [Advair Diskus 100/50] Albuterol HFA [Ventolin HFA 90 2 puff IH Q6 #200 puff 09/04/17 mcg/actuation (8 g)] Tiotropium [Spiriva] 18 mcg IH DAILY #1 cap 09/04/17 predniSONE [predniSONE Tab] 20 mg PO BID #8 tab 09/04/17 Azithromycin [Zithromax] 250 mg PO DAILY #6 tab 09/05/17 Fluticasone/Salmeterol 250/50 1 puff IH Q12 #28 puff 09/07/17 [Advair Diskus] Albuterol HFA [Ventolin HFA 90 1 - 2 puff IH Q6 PRN #1 inhaler 09/14/17 mcg/actuation (8 g)] predniSONE [predniSONE Tab] 60 mg PO QAM #12 tab 09/14/17 Azithromycin [Zithromax] 250 mg PO DAILY #6 tab 10/05/17 predniSONE [predniSONE Tab] 20 mg PO BID #8 tab 10/05/17 Tiotropium [Spiriva] 18 mcg IH DAILY #1 dev 10/06/17 Budesonide/Formoterol Fumarate 2 puff IH BID #1 aer 10/08/17 [Symbicort] Permethrin 5% [Permethrin] 60 gm TP ONCE PRN #1 tube 10/20/17 Permethrin 1% [Permethrin 60 Ml] 60 ml TP ONCE #1 bottle 12/16/17 Permethrin 5% [Permethrin 5% Cream] 60 gm EXT ONCE #1 tube 02/04/18 Albuterol HFA [Ventolin HFA 90 2 puff IH Q4 PRN #1 inhaler 06/06/18 mcg/actuation (8 g)] Albuterol HFA [Ventolin HFA 90 2 puff IH [id number] PRN #60 puff 06/21/18 mcg/actuation (8 g)] Cetirizine HCl [Zyrtec] 10 mg PO DAILY PRN #10 capsule 06/21/18 Tiotropium [Spiriva] 2 inh IH DAILY #1 each 06/21/18 Cetirizine HCl/Pseudoephedrine 1 each PO BID #30 tab.er.12h 07/03/18 [Zyrtec-D Tablet] predniSONE [predniSONE Tab] 60 mg PO DAILY #9 tab 07/03/18 Guaifenesin [Mucinex] 600 mg PO Q12 PRN #10 tab.er.12h 08/27/18 Tiotropium [place] Inhaler 1 inhaler INH QAM #1 inhaler 08/27/18 [Spiriva Inhalation Handihaler Device] guaiFENesin/Codeine 10 ml PO Q6 PRN #100 udc 08/31/18 - Allergies Allergies/Adverse Reactions: Allergies Allergy/AdvReac Type Severity Reaction Status Date / Time No Known Allergies Allergy Verified 08/31/18 15:22 Review of Systems ROS Statement: Except As Marked, All Systems Reviewed And Found Negative Psych: Positive for: Other (etoh) Physical Exam - Reviewed Nursing Documentation Reviewed: Yes Vital Signs Reviewed: Yes - Physical Exam Appears: Positive for: Well, Non-toxic, No Acute Distress Skin: Positive for: Normal Color. Negative for: Rash Eye Exam: Positive for: Normal appearance Cardiovascular/Chest: Positive for: Regular Rate, Rhythm Respiratory: Positive for: Normal Breath Sounds. Negative for: Wheezing, Respiratory Distress Neurologic/Psych: Positive for: Alert, Other (intoxicated, answers some questions appropriately) - ECG O2 Sat by Pulse Oximetry: 99 Pulse Ox Interpretation: Normal Medical Decision Making Medical Decision Makin48 y/o intoxicated male. Patient is well known to ED and has known history of alcohol abuse. Plan: Glucose POC Fingerstick: 63 - juice and sandwich given. 10:28 pm: repeat fingerstick 89. Patient is awake, alert, has steady gait, stable for discharge. Disposition - Clinical Impression Clinical Impression: Alcohol abuse with uncomplicated intoxication - Patient ED Disposition Is Patient to be Admitted: No - Disposition Referrals: [facility] [Outside] Disposition: Routine/Home Disposition Time: 22:25 Condition: STABLE Instructions: Alcohol Abuse and Alcoholism (DC) Forms: [employer] (Sammarinese)
== END 2018-08-31 22:27 | disposition home or self-care (01) ==
LOC: H.ER 15:19
DX: F10.120 Alcohol abuse with intoxication, uncomplicated (principal)

== ENCOUNTER 2019-02-17 20:30 | Emergency (ER) | payer MEDICAID, OTHER ==
[2019-02-17 20:30] VITALS: BMI 23.3
[2019-02-17 20:38] VITALS: RESP 16; O2SAT 99
--- NOTE | 2019-02-18 04:05 | ED PDOC ---
HPI: Psych/Substance Abuse Time Seen by Provider: 02/17/19 20:32 Chief Complaint (Nursing): Alcohol Ingestion Chief Complaint (Provider): Alcohol abuse, denies complaints History Per: Patient History/Exam Limitations: no limitations Onset/Duration Of Symptoms: Hrs Current Symptoms Are (Timing): Still Present Additional Complaint(s): 48 yo male brought in by EMS for evaluation. Pt was out side urinating when police came. PT denies complaint. PT ambulates to bathroom without help on arrival. No sign of trauma. Past Medical History Reviewed: Historical Data, Nursing Documentation, Vital Signs Vital Signs: Last Vital Signs Temp 97.7 F 02/17/19 20:36 Pulse 92 H 02/17/19 20:36 Resp 16 02/17/19 20:36 BP 115/90 02/17/19 20:36 Pulse Ox 99 02/17/19 20:36 Primary Care Provider: FAMILY PROVIDER,NO - Medical History PMH: Asthma, Bronchitis, COPD, HTN, Pneumonia, Seizures - Surgical History Surgical History: Hernia Repair (ventral) - Family History Family History: States: Unknown Family Hx - Living Arrangements Living Arrangements: With Family - Social History Current smoker - smoking cessation education provided: No - Immunization History Hx Tetanus Toxoid Vaccination: Yes Hx Influenza Vaccination: Yes Hx Pneumococcal Vaccination: Yes - Home Medications Home Medications: Ambulatory Orders Medication Instructions Recorded Albuterol 0.083% [Albuterol 0.083% 2.5 mg INH RQ6 PRN #0 neb 10/08/16 Inhal Ghada (2.5 mg/3 ml) UD] Tiotropium [place] Inhaler 1 inhaler INH DAILY #1 inhaler 10/08/16 [Spiriva Inhalation Handihaler Device] Albuterol HFA [Ventolin HFA 90 1 puff IH BID PRN #1 unit 03/25/17 mcg/actuation (8 g)] Doxycycline Hyclate 100 mg PO BID #14 cap 07/14/17 Doxycycline Monohydrate 100 mg PO BID #14 capsule 07/14/17 Mupirocin 2% Cream [Bactroban 1 applic TOP DAILY #1 tube 07/14/17 Cream] Albuterol HFA [Ventolin HFA 90 2 puff IH Q6 #200 puff 07/25/17 mcg/actuation (8 g)] predniSONE [predniSONE Tab] 20 mg PO BID #8 tab 07/25/17 Fluticasone/Salmeterol 250/50 1 puff IH Q12 #1 inh 08/22/17 [Advair Diskus] predniSONE [predniSONE Tab] 60 mg PO QAM #12 tab 08/22/17 Fluticasone/Salmeterol 100/50 1 puff IH BID #2 dsk 09/03/17 [Advair Diskus 100/50] Albuterol HFA [Ventolin HFA 90 2 puff IH Q6 #200 puff 09/04/17 mcg/actuation (8 g)] Tiotropium [Spiriva] 18 mcg IH DAILY #1 cap 09/04/17 predniSONE [predniSONE Tab] 20 mg PO BID #8 tab 09/04/17 Azithromycin [Zithromax] 250 mg PO DAILY #6 tab 09/05/17 Fluticasone/Salmeterol 250/50 1 puff IH Q12 #28 puff 09/07/17 [Advair Diskus] Albuterol HFA [Ventolin HFA 90 1 - 2 puff IH Q6 PRN #1 inhaler 09/14/17 mcg/actuation (8 g)] predniSONE [predniSONE Tab] 60 mg PO QAM #12 tab 09/14/17 Azithromycin [Zithromax] 250 mg PO DAILY #6 tab 10/05/17 predniSONE [predniSONE Tab] 20 mg PO BID #8 tab 10/05/17 Tiotropium [Spiriva] 18 mcg IH DAILY #1 dev 10/06/17 Budesonide/Formoterol Fumarate 2 puff IH BID #1 aer 10/08/17 [Symbicort] Permethrin 5% [Permethrin] 60 gm TP ONCE PRN #1 tube 10/20/17 Permethrin 1% [Permethrin 60 Ml] 60 ml TP ONCE #1 bottle 12/16/17 Permethrin 5% [Permethrin 5% Cream] 60 gm EXT ONCE #1 tube 02/04/18 Albuterol HFA [Ventolin HFA 90 2 puff IH Q4 PRN #1 inhaler 06/06/18 mcg/actuation (8 g)] Albuterol HFA [Ventolin HFA 90 2 puff IH [id number] PRN #60 puff 06/21/18 mcg/actuation (8 g)] Cetirizine HCl [Zyrtec] 10 mg PO DAILY PRN #10 capsule 06/21/18 Tiotropium [Spiriva] 2 inh IH DAILY #1 each 06/21/18 Cetirizine HCl/Pseudoephedrine 1 each PO BID #30 tab.er.12h 07/03/18 [Zyrtec-D Tablet] predniSONE [predniSONE Tab] 60 mg PO DAILY #9 tab 07/03/18 Guaifenesin [Mucinex] 600 mg PO Q12 PRN #10 tab.er.12h 08/27/18 Tiotropium [place] Inhaler 1 inhaler INH QAM #1 inhaler 08/27/18 [Spiriva Inhalation Handihaler Device] guaiFENesin/Codeine 10 ml PO Q6 PRN #100 udc 08/31/18 Albuterol HFA [Ventolin HFA 90 2 puff IH Q4 #120 puff 09/11/18 mcg/actuation (8 g)] Fluticasone/Salmeterol 250/50 1 puff IH Q12 #1 dsk 09/11/18 [Advair Diskus] Bacitracin Ointment [Bacitracin] 1 applic TOP DAILY #1 tube 09/21/18 Albuterol HFA [Ventolin HFA 90 2 puff IH [id number] #1 puff 01/27/19 mcg/actuation (8 g)] predniSONE [predniSONE Tab] 40 mg PO DAILY #8 tab 01/27/19 - Allergies Allergies/Adverse Reactions: Allergies Allergy/AdvReac Type Severity Reaction Status Date / Time No Known Allergies Allergy Verified 10/27/18 23:14 Review of Systems ROS Statement: Except As Marked, All Systems Reviewed And Found Negative Constitutional: Negative for: Fever, Chills Cardiovascular: Negative for: Chest Pain, Palpitations Respiratory: Negative for: Cough, Shortness of Breath Gastrointestinal: Negative for: Nausea, Vomiting, Abdominal Pain, Diarrhea Musculoskeletal: Negative for: Neck Pain, Shoulder Pain, Arm Pain Skin: Negative for: Rash Neurological: Negative for: Weakness, Numbness, Seizures, Altered Mental Status Physical Exam - Reviewed Nursing Documentation Reviewed: Yes Vital Signs Reviewed: Yes - Physical Exam Appears: Positive for: Well, Non-toxic, No Acute Distress Head Exam: Positive for: ATRAUMATIC, NORMAL INSPECTION, NORMOCEPHALIC Skin: Positive for: Normal Color, Warm, DRY Eye Exam: Positive for: Normal appearance ENT: Positive for: Normal ENT Inspection Neck: Positive for: Normal, Painless ROM Cardiovascular/Chest: Positive for: Regular Rate, Rhythm Respiratory: Positive for: Normal Breath Sounds. Negative for: Accessory Muscle Use, Respiratory Distress Back: Positive for: Normal Inspection Extremity: Positive for: Normal ROM Neurological/Psych: Positive for: Awake, Alert, Normal Tone - ECG O2 Sat by Pulse Oximetry: 99 Pulse Ox Interpretation: Normal Disposition - Clinical Impression Clinical Impression: Alcohol abuse - Patient ED Disposition Is Patient to be Admitted: No - Disposition Disposition: Routine/Home Disposition Time: 04:10 Condition: GOOD Instructions: Alcohol Use - When Is Drinking a Problem?
[2019-02-18 05:53] VITALS: BP 117/78; PULSE 86; TEMP 97.9
== END 2019-02-18 04:35 | disposition home or self-care (01) ==
LOC: H.ER 20:30
DX: F10.10 Alcohol abuse, uncomplicated (principal); I10 Essential (primary) hypertension; J44.9 Chronic obstructive pulmonary disease, unspecified

== ENCOUNTER 2019-02-18 14:24 | Emergency (ER) | payer OTHER ==
[2019-02-18 14:25] VITALS: BMI 23.3
[2019-02-18 14:29] VITALS: RESP 18
--- NOTE | 2019-02-18 16:41 | ED PDOC ---
HPI: Psych/Substance Abuse Time Seen by Provider: 02/18/19 14:47 Chief Complaint (Nursing): Alcohol Ingestion Chief Complaint (Provider): Alcohol Ingestion History Per: Patient, EMS History/Exam Limitations: intoxication Onset/Duration Of Symptoms: Unknown Current Symptoms Are (Timing): Still Present Modifying Factor(s): Alcohol Additional Complaint(s): 48 y/o male with a PMHx of HTN, COPD and alcohol abuse brought in by EMS after being found on the street appearing very intoxicated. Patient admits to drinking alcohol today. When asked how much, patient reports "a pint of vodka" to the providers but reported "a gallon of vodka" to triage. Patient admits to drinking alcohol daily. Patient has a positive history of DTs. Denies fall, head trauma and dizziness. PMD: no provider Past Medical History Reviewed: Historical Data, Nursing Documentation, Vital Signs Vital Signs: Last Vital Signs Temp 97.9 F 02/18/19 14:28 Pulse 92 H 02/18/19 14:28 Resp 18 02/18/19 14:28 BP 110/55 L 02/18/19 14:28 Pulse Ox 97 02/18/19 14:28 Primary Care Provider: FAMILY PROVIDER,NO - Medical History PMH: Asthma, Bronchitis, COPD, HTN, Pneumonia, Seizures - Surgical History Surgical History: Hernia Repair (ventral) - Family History Family History: States: Unknown Family Hx - Social History Alcohol: > 2 Drinks/Day - Immunization History Hx Tetanus Toxoid Vaccination: Yes Hx Influenza Vaccination: Yes Hx Pneumococcal Vaccination: Yes - Home Medications Home Medications: Ambulatory Orders Medication Instructions Recorded Albuterol 0.083% [Albuterol 0.083% 2.5 mg INH RQ6 PRN #0 neb 10/08/16 Inhal Ghada (2.5 mg/3 ml) UD] Tiotropium [place] Inhaler 1 inhaler INH DAILY #1 inhaler 10/08/16 [Spiriva Inhalation Handihaler Device] Albuterol HFA [Ventolin HFA 90 1 puff IH BID PRN #1 unit 03/25/17 mcg/actuation (8 g)] Doxycycline Hyclate 100 mg PO BID #14 cap 07/14/17 Doxycycline Monohydrate 100 mg PO BID #14 capsule 07/14/17 Mupirocin 2% Cream [Bactroban 1 applic TOP DAILY #1 tube 07/14/17 Cream] Albuterol HFA [Ventolin HFA 90 2 puff IH Q6 #200 puff 07/25/17 mcg/actuation (8 g)] predniSONE [predniSONE Tab] 20 mg PO BID #8 tab 07/25/17 Fluticasone/Salmeterol 250/50 1 puff IH Q12 #1 inh 08/22/17 [Advair Diskus] predniSONE [predniSONE Tab] 60 mg PO QAM #12 tab 08/22/17 Fluticasone/Salmeterol 100/50 1 puff IH BID #2 dsk 09/03/17 [Advair Diskus 100/50] Albuterol HFA [Ventolin HFA 90 2 puff IH Q6 #200 puff 09/04/17 mcg/actuation (8 g)] Tiotropium [Spiriva] 18 mcg IH DAILY #1 cap 09/04/17 predniSONE [predniSONE Tab] 20 mg PO BID #8 tab 09/04/17 Azithromycin [Zithromax] 250 mg PO DAILY #6 tab 09/05/17 Fluticasone/Salmeterol 250/50 1 puff IH Q12 #28 puff 09/07/17 [Advair Diskus] Albuterol HFA [Ventolin HFA 90 1 - 2 puff IH Q6 PRN #1 inhaler 09/14/17 mcg/actuation (8 g)] predniSONE [predniSONE Tab] 60 mg PO QAM #12 tab 09/14/17 Azithromycin [Zithromax] 250 mg PO DAILY #6 tab 10/05/17 predniSONE [predniSONE Tab] 20 mg PO BID #8 tab 10/05/17 Tiotropium [Spiriva] 18 mcg IH DAILY #1 dev 10/06/17 Budesonide/Formoterol Fumarate 2 puff IH BID #1 aer 10/08/17 [Symbicort] Permethrin 5% [Permethrin] 60 gm TP ONCE PRN #1 tube 10/20/17 Permethrin 1% [Permethrin 60 Ml] 60 ml TP ONCE #1 bottle 12/16/17 Permethrin 5% [Permethrin 5% Cream] 60 gm EXT ONCE #1 tube 02/04/18 Albuterol HFA [Ventolin HFA 90 2 puff IH Q4 PRN #1 inhaler 09/11/18 mcg/actuation (8 g)] Albuterol HFA [Ventolin HFA 90 2 puff IH [id number] PRN #60 puff 06/21/18 mcg/actuation (8 g)] Cetirizine HCl [Zyrtec] 10 mg PO DAILY PRN #10 capsule 06/21/18 Tiotropium [Spiriva] 2 inh IH DAILY #1 each 06/21/18 Cetirizine HCl/Pseudoephedrine 1 each PO BID #30 tab.er.12h 07/03/18 [Zyrtec-D Tablet] predniSONE [predniSONE Tab] 60 mg PO DAILY #9 tab 07/03/18 Guaifenesin [Mucinex] 600 mg PO Q12 PRN #10 tab.er.12h 08/27/18 Tiotropium [place] Inhaler 1 inhaler INH QAM #1 inhaler 08/27/18 [Spiriva Inhalation Handihaler Device] guaiFENesin/Codeine 10 ml PO Q6 PRN #100 udc 08/31/18 Albuterol HFA [Ventolin HFA 90 2 puff IH Q4 #120 puff 09/11/18 mcg/actuation (8 g)] Fluticasone/Salmeterol 250/50 1 puff IH Q12 #1 dsk 09/11/18 [Advair Diskus] Bacitracin Ointment [Bacitracin] 1 applic TOP DAILY #1 tube 09/21/18 Albuterol HFA [Ventolin HFA 90 2 puff IH [id number] #1 puff 01/27/19 mcg/actuation (8 g)] predniSONE [predniSONE Tab] 40 mg PO DAILY #8 tab 01/27/19 - Allergies Allergies/Adverse Reactions: Allergies Allergy/AdvReac Type Severity Reaction Status Date / Time No Known Allergies Allergy Verified 02/18/19 14:29 Review of Systems ROS Statement: Except As Marked, All Systems Reviewed And Found Negative Psych: Positive for: Other (alcohol intoxication ) Physical Exam - Reviewed Nursing Documentation Reviewed: Yes Vital Signs Reviewed: Yes - Physical Exam Appears: Positive for: No Acute Distress (smells of alcohol, seen sleeping inbed) Head Exam: Positive for: ATRAUMATIC. Negative for: NORMAL INSPECTION (facial erythema noted) Eye Exam: Positive for: Normal appearance, EOMI, PERRL Neck: Positive for: Normal, Painless ROM, Supple Cardiovascular/Chest: Positive for: Regular Rate, Rhythm. Negative for: Murmur Respiratory: Negative for: Respiratory Distress Extremity: Positive for: Normal ROM Neurological/Psych: Positive for: Oriented (x2 (person and time)), Other (sleeping but arousable. Slurred speech. Alcohol on breath. Somnolent.) - ECG O2 Sat by Pulse Oximetry: 97 (RA) Pulse Ox Interpretation: Normal Medical Decision Making Medical Decision Making: Time: 1616 Impression: Public Alcohol Intoxication Plan: -- Alcohol Serum -- Accucheck -- Re-evaluate patient, pending clinical sobriety Time: 1657 -- Accucheck is 106. Scribe Attestation: Documented by Elsa Wahl, acting as a scribe Esperanza Whitman PA-C. Provider Scribe Attestation: All medical record entries made by the Scribe were at my direction and personally dictated by me. I have reviewed the chart and agree that the record accurately reflects my personal performance of the history, physical exam, medical decision making, and the department course for this patient. I have also personally directed, reviewed, and agree with the discharge instructions and disposition. 23:45: pt awake and alert, eating a sandwich, states that he feels well. Ambulating with steady gait. Stable for d/c home. Disposition - Clinical Impression Clinical Impression: Alcohol abuse with intoxication delirium - Disposition Referrals: [facility] [Outside] Disposition: Routine/Home Disposition Time: 23:50 Condition: STABLE Instructions: Alcohol Use - When Is Drinking a Problem?, Alcohol Abuse and Alcoholism (DC), Alcohol Poisoning (DC) Forms: [employer] ([place]ian) Print Language: THAI
[2019-02-19 00:14] VITALS: BP 122/78; PULSE 84; TEMP 98; O2SAT 99
== END 2019-02-19 00:13 | disposition home or self-care (01) ==
LOC: H.ER 14:24
DX: F10.121 Alcohol abuse with intoxication delirium (principal); I10 Essential (primary) hypertension